=== PATIENT | female | born 1955 | race Caucasian/White ===

== ENCOUNTER → 2016-05-24 | Outpatient (CLI) | payer OTHER ==
[2016-05-24 08:04] LABS: ALT 24 U/L (9-52); AST 21 U/L (14-36); Cholesterol 195 mg/dL (<200); HDL Cholesterol 60 mg/dL (40-60); Triglycerides 209 mg/dL (<150)
== END ==
LOC: LABWHC1 07:03
PROVIDERS: ATTEND Internal Medicine Interventional Cardiology
DX: E78.2 Mixed hyperlipidemia (principal)
CPT/HCPCS: 36415; 80061; 84450; 84460

== ENCOUNTER → 2016-11-06 | Outpatient (CLI) | payer OTHER ==
[2016-11-06 08:58] LABS: ALT 26 U/L (9-52); AST 25 U/L (14-36); Alkaline Phosphatase 83 U/L (38-126); Anion Gap 9 mmol/L; Blood Urea Nitrogen 14 mg/dL (7-17); Calcium 9.3 mg/dL (8.4-10.2); Carbon Dioxide 29 mmol/L (22-30); Chloride 105 mmol/L (98-107); Cholesterol 181 mg/dL (<200); Glucose 83 mg/dL (74-99); HDL Cholesterol 54 mg/dL (40-60); Non-African American GFR(MDRD) >60 (>60 ml/min/1.73 sqM); Potassium 4.4 mmol/L (3.5-5.1); Sodium 143 mmol/L (137-145); Total Bilirubin 0.4 mg/dL (0.2-1.3); Total Protein 7.1 g/dL (6.3-8.2)
== END | disposition home or self-care (01) ==
LOC: LABWHC1 07:03
PROVIDERS: ATTEND Internal Medicine Interventional Cardiology
DX: E78.2 Mixed hyperlipidemia (principal)
CPT/HCPCS: 36415; 80053; 80061

== ENCOUNTER → 2016-12-15 | Outpatient (CLI) | payer OTHER ==
--- NOTE | 2016-12-17 06:58 | MM ---
Reason for exam: screening (asymptomatic). Last mammogram was performed 1 year ago. History: Patient is postmenopausal and is nulliparous. Took estrogen for 13 years beginning at age 29. Physical Findings: A clinical breast exam by your physician is recommended on an annual basis and results should be correlated with mammographic findings. MG Screening Mammo w CAD Bilateral CC and MLO view(s) were taken. Prior study comparison: December 15, 2015, bilateral MG screening mammo w CAD. December 12, 2014, right breast MG work up mamm w CAD RT. The breast tissue is heterogeneously dense. This may lower the sensitivity of mammography. No significant changes when compared with prior studies. ASSESSMENT: Negative, BI-RAD 1 RECOMMENDATION: Routine screening mammogram of both breasts in 1 year.
== END | disposition home or self-care (01) ==
LOC: RADMAMWWP 12:56
PROVIDERS: ATTEND Internal Medicine
DX: Z12.31 Encounter for screening mammogram for malignant neoplasm of breast (principal)

== ENCOUNTER → 2017-05-14 | Outpatient (CLI) | payer BC ==
[2017-05-14 07:46] LABS: HCT 40.7 % (34.0-46.0); HGB 12.9 gm/dL (11.4-16.0); Hypochromasia Slight; MCH 30.3 pg (25.0-35.0); MCHC 31.6 g/dL (31.0-37.0); MCV 95.9 fL (80.0-100.0); Mean Platelet Volume 6.7; Platelet Count 189 k/uL (150-450); RBC 4.25 m/uL (3.80-5.40); RDW 14.1 % (11.5-15.5); WBC 4.8 k/uL (3.8-10.6)
[2017-05-14 08:03] LABS: ALT 16 U/L (9-52); AST 18 U/L (14-36); Albumin 4.1 g/dL (3.5-5.0); Alkaline Phosphatase 86 U/L (38-126); Anion Gap 10 mmol/L; Blood Urea Nitrogen 18 mg/dL (7-17); Calcium 9.4 mg/dL (8.4-10.2); Carbon Dioxide 30 mmol/L (22-30); Chloride 103 mmol/L (98-107); Cholesterol 175 mg/dL (<200); Glucose 87 mg/dL (74-99); HDL Cholesterol 54 mg/dL (40-60); LDL Cholesterol,Calculated 89 mg/dL (0-99); Potassium 4.9 mmol/L (3.5-5.1); Sodium 143 mmol/L (137-145); Total Bilirubin 0.4 mg/dL (0.2-1.3); Total Protein 7.2 g/dL (6.3-8.2); Triglycerides 162 mg/dL (<150); Uric Acid 5.9 mg/dL (3.7-7.4)
== END | disposition home or self-care (01) ==
LOC: LABWHC1 07:10
PROVIDERS: ATTEND Internal Medicine Interventional Cardiology
DX: E78.2 Mixed hyperlipidemia (principal); I10 Essential (primary) hypertension; M10.9 Gout, unspecified
CPT/HCPCS: 36415; 80053; 80061; 84443; 84550; 85027

== ENCOUNTER → 2017-08-13 | Outpatient (CLI) | payer BC ==
[2017-08-13 10:10] LABS: HCT 39.3 % (34.0-46.0); HGB 12.8 gm/dL (11.4-16.0); MCH 30.2 pg (25.0-35.0); MCHC 32.7 g/dL (31.0-37.0); MCV 92.2 fL (80.0-100.0); Mean Platelet Volume 6.8; Platelet Count 172 k/uL (150-450); RBC 4.26 m/uL (3.80-5.40); RDW 15.1 % (11.5-15.5); WBC 4.1 k/uL (3.8-10.6)
[2017-08-13 10:27] LABS: ALT 24 U/L (9-52); AST 19 U/L (14-36); Albumin 4.2 g/dL (3.5-5.0); Alkaline Phosphatase 83 U/L (38-126); Anion Gap 13 mmol/L; Blood Urea Nitrogen 21 mg/dL (7-17); Calcium 9.3 mg/dL (8.4-10.2); Carbon Dioxide 27 mmol/L (22-30); Chloride 103 mmol/L (98-107); Cholesterol 172 mg/dL (<200); Glucose 86 mg/dL (74-99); HDL Cholesterol 51 mg/dL (40-60); LDL Cholesterol,Calculated 95 mg/dL (0-99); Potassium 4.4 mmol/L (3.5-5.1); Sodium 143 mmol/L (137-145); Total Bilirubin 0.5 mg/dL (0.2-1.3); Total Protein 7.1 g/dL (6.3-8.2); Triglycerides 132 mg/dL (<150); Uric Acid 6.6 mg/dL (3.7-7.4)
== END | disposition home or self-care (01) ==
LOC: LABWHC1 09:10
PROVIDERS: ATTEND Internal Medicine
DX: I10 Essential (primary) hypertension (principal); E78.5 Hyperlipidemia, unspecified; M10.9 Gout, unspecified
CPT/HCPCS: 36415; 80053; 80061; 84443; 84550; 85027

== ENCOUNTER → 2018-04-17 | Outpatient (CLI) | payer OTHER ==
--- NOTE | 2018-04-17 15:24 | BD ---
EXAMINATION TYPE: Axial Bone Density DATE OF EXAM: 04/17/2018 COMPARISON: NONE CLINICAL HISTORY: Height: 68 Weight: 194.8 FRAX RISK QUESTIONS: Alcohol (3 or more units per day): no Family History (Parent hip fracture): no Glucocorticoids (More than 3mos): no (Ex: prednisone, prednisolone, methylprednisolone, dexamethasone, and hydrocortisone). History of Fracture in Adulthood: no Secondary Osteoporosis: 1. Type 1 Diabetes: no 2. Hyperthyroidism: no 3. Menopause before 45: yes 4. Malnutrition: no 5. Chronic liver disease: no Rheumatoid Arthritis: no Current Tobacco Use: no RISK FACTORS HISTORY OF: Family History of Osteoporosis: no Active: yes Diet low in dairy products/other sources of calcium: no Postmenopausal woman: hysterectomy age 29 MEDICATIONS: heart meds, blood pressure meds Additional History: EXAM MEASUREMENTS: Bone mineral densitometry was performed using the [employer] System. Bone mineral density as measured about the Lumbar spine is: ----- L1-L4(G/cm2): 1.114 T Score Values are as follows: ----- L2: -1.1 ----- L3: -0.1 ----- L4: -0.4 ----- L1-L4: -0.5 Bone mineral density has: decreased -5.2 % since study of: 12.09.2014 Bone mineral density about the R hip (g/cm2): 0.868 Bone mineral density about the L hip (g/cm2): 0.837 T Score values are as follows: -----R Neck: -1.2 -----L Neck: -1.4 -----R Total: -0.9 -----L Total: -1.2 Bone mineral density has: decreased -5.1 % since study of: 12.09.2014 IMPRESSION: Osteopenia NOTE: T-SCORE=SD OF THE YOUNG ADULT MEAN.
--- NOTE | 2018-04-18 14:26 | MM ---
Reason for exam: screening (asymptomatic). Last mammogram was performed 1 year and 4 months ago. History: Patient is postmenopausal and is nulliparous. Took estrogen for 13 years beginning at age 29. Physical Findings: A clinical breast exam by your physician is recommended on an annual basis and results should be correlated with mammographic findings. MG Screening Mammo w CAD Bilateral CC and MLO view(s) were taken. Prior study comparison: December 15, 2016, bilateral MG screening mammo w CAD. December 15, 2015, bilateral MG screening mammo w CAD. The breast tissue is heterogeneously dense. This may lower the sensitivity of mammography. There are benign appearing round regional calcifications bilaterally. There is no discrete abnormality. ASSESSMENT: Benign, BI-RAD 2 RECOMMENDATION: Routine screening mammogram of both breasts in 1 year.
== END | disposition home or self-care (01) ==
LOC: RADMAMWWP 07:26
PROVIDERS: ATTEND Internal Medicine
DX: Z12.31 Encounter for screening mammogram for malignant neoplasm of breast (principal); M85.80 Other specified disorders of bone density and structure, unspecified site
CPT/HCPCS: 77067; 77080

== ENCOUNTER → 2018-06-14 | Outpatient (CLI) | payer SELFPAY | LOC: LABWHC1 07:10 | PROVIDERS: ATTEND Internal Medicine Interventional Cardiology | DX: E78.2 Mixed hyperlipidemia (principal) | CPT/HCPCS: 36415; 80061; 84450; 84460 ==

== ENCOUNTER → 2019-01-06 | Outpatient (CLI) | payer SELFPAY ==
[2019-01-06 15:57] LABS: African American GFR (CKD) 79.4 (60.0-200.0); Albumin 4.5 g/dL (3.80-4.90); Albumin/Globulin Ratio 2.14 (1.60-3.17); Anion Gap 9.3 mmol/L (4.00-12.00); Calcium 9.4 mg/dL (8.7-10.3); Carbon Dioxide 29.7 mmol/L (21.6-31.8); Chol/HDL Ratio 3.33; Globulin 2.1 g/dL (1.6-3.3); LDL Cholesterol,Calculated 95.4 mg/dL (0.0-131.0); Potassium 4.5 mmol/L (3.5-5.5); Total Bilirubin 0.4 mg/dL (0.2-1.2); Total Protein 6.6 g/dL (6.2-8.2); VLDL Calculation 32.6 mg/dL (5.00-40.00)
== END | disposition home or self-care (01) ==
LOC: LABWHC1 08:51
PROVIDERS: ATTEND Nurse Practitioner Adult Health
DX: E78.2 Mixed hyperlipidemia (principal); I42.8 Other cardiomyopathies
CPT/HCPCS: 36415; 80053; 80061

== ENCOUNTER → 2020-01-28 | Outpatient (CLI) | payer BC ==
[2020-01-28 10:38] LABS: LDL Cholesterol,Calculated 79.2 mg/dL (0.0-131.0); VLDL Calculation 32.8 mg/dL (5.00-40.00)
== END | disposition home or self-care (01) ==
LOC: LABWHC1 07:25
PROVIDERS: ATTEND Internal Medicine Interventional Cardiology
DX: E78.2 Mixed hyperlipidemia (principal)
CPT/HCPCS: 36415; 80061; 84450; 84460

== ENCOUNTER → 2020-06-23 | Outpatient (CLI) | payer BC ==
--- NOTE | 2020-06-24 10:52 | MM ---
Reason for exam: screening (asymptomatic). Last mammogram was performed 1 year and 2 months ago. History: Patient is postmenopausal and is nulliparous. Took estrogen for 13 years beginning at age 29. Physical Findings: A clinical breast exam by your physician is recommended on an annual basis and results should be correlated with mammographic findings. MG Screening Mammo w CAD Bilateral CC and MLO view(s) were taken. Prior study comparison: April 26, 2019, bilateral MG screening mammo w CAD. April 17, 2018, bilateral MG screening mammo w CAD. The breast tissue is heterogeneously dense. This may lower the sensitivity of mammography. Focal asymmetry central upper right breast, stable. ASSESSMENT: Benign, BI-RAD 2 RECOMMENDATION: Routine screening mammogram of both breasts in 1 year.
== END | disposition home or self-care (01) ==
LOC: RADMAMWWP 09:09
PROVIDERS: ATTEND Internal Medicine
DX: Z12.31 Encounter for screening mammogram for malignant neoplasm of breast (principal); Z78.0 Asymptomatic menopausal state
CPT/HCPCS: 77067

== ENCOUNTER → 2020-07-24 | Outpatient (CLI) | payer BC ==
[2020-07-24 15:08] LABS: African American GFR (CKD) 69.4 (60.0-200.0); Albumin 4.4 g/dL (3.80-4.90); Albumin/Globulin Ratio 1.83 (1.60-3.17); Anion Gap 9.9 mmol/L (4.00-12.00); Calcium 9.2 mg/dL (8.7-10.3); Carbon Dioxide 25.1 mmol/L (21.6-31.8); Chol/HDL Ratio 3.31; Globulin 2.4 g/dL (1.6-3.3); LDL Cholesterol,Calculated 79.4 mg/dL (0.0-131.0); Non-African American GFR(CKD) 59.9 (60.0-200.0); Potassium 4.4 mmol/L (3.5-5.5); Total Bilirubin 0.7 mg/dL (0.2-1.2); Total Protein 6.8 g/dL (6.2-8.2); VLDL Calculation 31.6 mg/dL (5.00-40.00)
== END | disposition home or self-care (01) ==
LOC: LABWHC1 07:18
PROVIDERS: ATTEND Internal Medicine Interventional Cardiology
DX: E78.2 Mixed hyperlipidemia (principal)
CPT/HCPCS: 36415; 80053; 80061

== ENCOUNTER 2021-01-30 11:27 | Inpatient (IN) | payer BC ==
[2021-01-30 12:23] LABS: Anisocytosis Slight; Basophils % (A) 1 %; Eosinophils # (A) 0.1 k/uL (0-0.7); Eosinophils % (A) 2 %; HCT 26.3 % (34.0-46.0); HGB 7.6 gm/dL (11.4-16.0); Hypochromasia Marked; Lymphocytes # (A) 1.7 k/uL (1.0-4.8); Lymphocytes % (A) 30 %; MCH 22.8 pg (25.0-35.0); MCHC 29.1 g/dL (31.0-37.0); MCV 78.2 fL (80.0-100.0); Mean Platelet Volume 8.3; Microcytosis Slight; Monocytes # (A) 0.4 k/uL (0-1.0); Monocytes % (A) 7 %; Neutrophils # (A) 3.2 k/uL (1.3-7.7); Neutrophils % (A) 57 %; Platelet Count 260 k/uL (150-450); Poikilocytosis Slight; RBC 3.36 m/uL (3.80-5.40); RDW 16.9 % (11.5-15.5); WBC 5.6 k/uL (3.8-10.6)
[2021-01-30 12:31] LABS: Albumin 4.2 g/dL (3.5-5.0); Calcium 9.6 mg/dL (8.4-10.2); Potassium 4.4 mmol/L (3.5-5.1); Total Bilirubin 0.4 mg/dL (0.2-1.3); Total Protein 7.4 g/dL (6.3-8.2)
--- NOTE | 2021-01-30 13:43 | ED ---
General Adult HPI - General Chief complaint: Dizziness Stated complaint: sent by pcp Time Seen by Provider: 01/30/21 11:55 Source: patient, RN notes reviewed, old records reviewed Mode of arrival: ambulatory Limitations: no limitations - History of Present Illness Initial comments: This is a 65-year-old female presents emergency Department who presents emergency Department states she's had a two-week episode of shortness of breath fatigue and black stools. Patient states she went to her primary medical care doctor's office they were called and stated that there hemoglobin was low. Patient has no history of similar. Patient denies any chest pain or palpitations. Patient states she's never had a colonoscopy. Patient denies any vomiting or diarrhea. Abdominal pain. - Related Data Allergies Allergy/AdvReac Type Severity Reaction Status Date / Time penicillin G AdvReac Unknown Unknown Verified 01/30/21 11:55 Review of Systems ROS Statement: Those systems with pertinent positive or pertinent negative responses have been documented in the HPI. ROS Other: All systems not noted in ROS Statement are negative. Past Medical History Past Medical History: No Reported History History of Any Multi-Drug Resistant Organisms: None Reported Past Surgical History: No Surgical Hx Reported Past Psychological History: No Psychological Hx Reported Smoking Status: Never smoker Past Alcohol Use History: None Reported Past Drug Use History: None Reported General Exam - General Exam Comments Initial Comments: GENERAL: Patient is well-developed and well-nourished. Patient is nontoxic and well- hydrated and is in no acute distress EYES: The sclera were anicteric and conjunctiva is pale. Extraocular movements were intact and pupils were equal round and reactive to light. Eyelids were unremarkable. PULMONARY: Unlabored respirations. Good breath sounds bilaterally. No audible rales rhonchi or wheezing was noted. CARDIOVASCULAR: There is a regular rate and rhythm without any murmurs gallops or rubs. ABDOMEN: Soft and nontender with normal bowel sounds. No palpable organomegaly was noted. There is no palpable pulsatile mass. SKIN: Skin is pale NEUROLOGIC: Patient is alert and oriented x3. Cranial nerves II through XII are grossly intact. Motor and sensory are also intact. Normal speech, volume and content. Symmetrical smile. MUSCULOSKELETAL: Normal extremities with adequate strength and full range of motion. No lower extremity swelling or edema. No calf tenderness. LYMPHATICS: No significant lymphadenopathy is noted PSYCHIATRIC: Normal psychiatric evaluation. Limitations: no limitations Course Vital Signs 11/12/21 11:51 Temperature 98.3 F Pulse Rate 63 Respiratory 18 Rate Blood Pressure 122/54 O2 Sat by Pulse 100 Oximetry Medical Decision Making - Medical Decision Making EKG is normal sinus rhythm at 61 bpm OR interval is on a 44 QRS is 92 QT interval is 426 QTC is 428 per patient's EKG shows no ST segment elevation or depression. I spoke with Dr. Dasilva he agreed with the patient admitted the patient wrote admitting orders - Lab Data Result diagrams: 01/30/21 12:00 01/30/21 12:00 Lab Results 01/30/21 01/30/21 Range/Units 12:00 12:00 WBC 5.6 (3.8-10.6) k/uL RBC 3.36 L (3.80-5.40) m/uL Hgb 7.6 L (11.4-16.0) gm/dL Hct 26.3 L (34.0-46.0) % MCV 78.2 L (80.0-100.0) fL MCH 22.8 L (25.0-35.0) pg MCHC 29.1 L (31.0-37.0) g/dL RDW 16.9 H (11.5-15.5) % Plt Count 260 (150-450) k/uL MPV 8.3 Neutrophils % 57 % Lymphocytes % 30 % Monocytes % 7 % Eosinophils % 2 % Basophils % 1 % Neutrophils # 3.2 (1.3-7.7) k/uL Lymphocytes # 1.7 (1.0-4.8) k/uL Monocytes # 0.4 (0-1.0) k/uL Eosinophils # 0.1 (0-0.7) k/uL Basophils # 0.0 (0-0.2) k/uL Hypochromasia Marked Poikilocytosis Slight Anisocytosis Slight Microcytosis Slight Sodium 137 (137-145) mmol/L Potassium 4.4 (3.5-5.1) mmol/L Chloride 103 (98-107) mmol/L Carbon Dioxide 26 (22-30) mmol/L Anion Gap 8 mmol/L BUN 24 H (7-17) mg/dL Creatinine 0.85 (0.52-1.04) mg/dL Est GFR (CKD-EPI)AfAm 84 (>60 ml/min/1.73 sqM) Est GFR (CKD-EPI)NonAf 73 (>60 ml/min/1.73 sqM) Glucose 100 H (74-99) mg/dL Calcium 9.6 (8.4-10.2) mg/dL Total Bilirubin 0.4 (0.2-1.3) mg/dL AST 19 (14-36) U/L ALT 10 (4-34) U/L Alkaline Phosphatase 82 (38-126) U/L Total Protein 7.4 (6.3-8.2) g/dL Albumin 4.2 (3.5-5.0) g/dL Disposition Clinical Impression: GI bleed, Anemia Disposition: ADMITTED IP TO THIS HOSP Referrals: Anahy Dasilva MD [Primary Care Provider] - 1-2 days Time of Disposition: 13:44
[2021-01-30 14:52] LABS: Partial Thromboplastin Time 22.7 sec (22.0-30.0); Prothrombin Time 10.4 sec (9.0-12.0)
[2021-01-30] MEDS: SODIUM CHLORIDE 0.9% 1,000 ML IV ONE ×2 (15:08→22:20)
[2021-01-30 20:34] LABS: Anisocytosis Slight; Basophils % (A) 1 %; Eosinophils # (A) 0.1 k/uL (0-0.7); Eosinophils % (A) 2 %; Hypochromasia Marked; Lymphocytes # (A) 1.8 k/uL (1.0-4.8); Lymphocytes % (A) 40 %; MCH 23.4 pg (25.0-35.0); MCHC 30.3 g/dL (31.0-37.0); MCV 77.1 fL (80.0-100.0); Mean Platelet Volume 7.3; Microcytosis Slight; Monocytes # (A) 0.3 k/uL (0-1.0); Monocytes % (A) 7 %; Neutrophils # (A) 2.1 k/uL (1.3-7.7); Neutrophils % (A) 47 %; Platelet Count 230 k/uL (150-450); Poikilocytosis Slight; RBC 2.85 m/uL (3.80-5.40); RDW 16.9 % (11.5-15.5); WBC 4.5 k/uL (3.8-10.6)
[2021-01-30 20:51] LABS: HGB 6.7 gm/dL (11.4-16.0)
[2021-01-30] MEDS: PANTOPRAZOLE 40 MG/10 ML VIAL IVP SCH (22:20)
[2021-01-30 23:46] LABS: Anisocytosis Slight; Basophils % (A) 0 %; Eosinophils # (A) 0.1 k/uL (0-0.7); Eosinophils % (A) 2 %; HCT 21.6 % (34.0-46.0); Hypochromasia Marked; Lymphocytes # (A) 1.7 k/uL (1.0-4.8); Lymphocytes % (A) 33 %; MCH 23.3 pg (25.0-35.0); MCHC 29.6 g/dL (31.0-37.0); MCV 78.6 fL (80.0-100.0); Mean Platelet Volume 7.7; Microcytosis Slight; Monocytes # (A) 0.3 k/uL (0-1.0); Monocytes % (A) 7 %; Neutrophils # (A) 2.7 k/uL (1.3-7.7); Neutrophils % (A) 54 %; Platelet Count 228 k/uL (150-450); Poikilocytosis Slight; RBC 2.75 m/uL (3.80-5.40); RDW 16.8 % (11.5-15.5)
[2021-01-31 00:06] LABS: HGB 6.4 gm/dL (11.4-16.0)
[2021-01-31] MEDS: PANTOPRAZOLE 40 MG/10 ML VIAL IVP SCH ×2 (09:46→20:57)
--- NOTE | 2021-01-31 10:36 | P.GSCN ---
History of Present Illness Consult date: 01/31/21 Reason for Consult: Anemia, GI bleeding History of present illness: Patient presented to the ER with anemia and GI bleeding. She's noticed some black stools 2 weeks. Denies any actual blood in the stool that she seen or change in bowel habits other than the color. No heartburn or indigestion. No abdominal pain. No history of ulcer disease. No family history of GI malignancy or inflammatory bowel disease. The patient has never had an EGD or colonoscopy. She did have 1 episode of vomiting when she was at the grocery store. She was walking around and got very lightheaded and went in and threw up some clear fluid Review of Systems All systems: negative Past Medical History Past Medical History: No Reported History, Hyperlipidemia, Hypertension History of Any Multi-Drug Resistant Organisms: None Reported Past Surgical History: Hysterectomy Past Psychological History: No Psychological Hx Reported Smoking Status: Former smoker Past Alcohol Use History: None Reported Past Drug Use History: None Reported Medications and Allergies Home Medications Medication Instructions Recorded Confirmed Type Aspirin EC [Ecotrin Low Dose] 81 mg PO DAILY 01/30/21 01/30/21 History Ergocalciferol [Vitamin D2 (1250 1,250 mcg PO MO 01/30/21 01/30/21 History Mcg = 85716 Iu)] Losartan Potassium 50 mg PO DAILY 01/30/21 01/30/21 History Simvastatin [Zocor] 40 mg PO HS 01/30/21 01/30/21 History Venlafaxine HCl ER [Effexor Xr] 37.5 mg PO Q48H 01/30/21 01/30/21 History Vits A,C,E/Lutein/Minerals 1 tab PO DAILY 01/30/21 01/30/21 History [Ocuvite with Lutein Tablet] carvediloL [Coreg] 3.125 mg PO BID 01/30/21 01/30/21 History Allergies Allergy/AdvReac Type Severity Reaction Status Date / Time penicillin G AdvReac Unknown Unknown Verified 01/30/21 14:41 Surgical - Exam Osteopathic Statement: *. No significant issues noted on an osteopathic structural exam other than those noted in the History and Physical/Consult. Vital Signs Temp Pulse Resp BP Pulse Ox 98.3 F 63 18 122/54 100 01/30/21 11:51 01/30/21 11:51 01/30/21 11:51 01/30/21 11:51 01/30/21 11:51 - General well developed, well nourished, no distress - Eyes normal ocular movement - Neck trachea midline - Respiratory normal respiratory effort, clear to auscultation - Cardiovascular Rhythm: regular - Abdomen Abdomen: soft, non tender, bowel sounds Results - Labs 01/30/21 23:22 01/30/21 12:00 Abnormal Lab Results - Last 24 Hours (Table) 01/30/21 01/30/21 01/30/21 Range/Units 12:00 12:00 14:05 RBC 3.36 L (3.80-5.40) m/uL Hgb 7.6 L (11.4-16.0) gm/dL Hct 26.3 L (34.0-46.0) % MCV 78.2 L (80.0-100.0) fL MCH 22.8 L (25.0-35.0) pg MCHC 29.1 L (31.0-37.0) g/dL RDW 16.9 H (11.5-15.5) % BUN 24 H (7-17) mg/dL Glucose 100 H (74-99) mg/dL Crossmatch See Detail 01/30/21 01/30/21 Range/Units 20:10 23:22 RBC 2.85 L 2.75 L (3.80-5.40) m/uL Hgb 6.7 L* 6.4 L* (11.4-16.0) gm/dL Hct 22.0 L 21.6 L (34.0-46.0) % MCV 77.1 L 78.6 L (80.0-100.0) fL MCH 23.4 L 23.3 L (25.0-35.0) pg MCHC 30.3 L 29.6 L (31.0-37.0) g/dL RDW 16.9 H 16.8 H (11.5-15.5) % BUN (7-17) mg/dL Glucose (74-99) mg/dL Crossmatch Diabetes panel 01/30/21 Range/Units 12:00 Sodium 137 (137-145) mmol/L Potassium 4.4 (3.5-5.1) mmol/L Chloride 103 (98-107) mmol/L Carbon Dioxide 26 (22-30) mmol/L BUN 24 H (7-17) mg/dL Creatinine 0.85 (0.52-1.04) mg/dL Glucose 100 H (74-99) mg/dL Calcium 9.6 (8.4-10.2) mg/dL AST 19 (14-36) U/L ALT 10 (4-34) U/L Alkaline Phosphatase 82 (38-126) U/L Total Protein 7.4 (6.3-8.2) g/dL Albumin 4.2 (3.5-5.0) g/dL Calcium panel 01/30/21 Range/Units 12:00 Calcium 9.6 (8.4-10.2) mg/dL Albumin 4.2 (3.5-5.0) g/dL Pituitary panel 01/30/21 Range/Units 12:00 Sodium 137 (137-145) mmol/L Potassium 4.4 (3.5-5.1) mmol/L Chloride 103 (98-107) mmol/L Carbon Dioxide 26 (22-30) mmol/L BUN 24 H (7-17) mg/dL Creatinine 0.85 (0.52-1.04) mg/dL Glucose 100 H (74-99) mg/dL Calcium 9.6 (8.4-10.2) mg/dL Adrenal panel 01/30/21 Range/Units 12:00 Sodium 137 (137-145) mmol/L Potassium 4.4 (3.5-5.1) mmol/L Chloride 103 (98-107) mmol/L Carbon Dioxide 26 (22-30) mmol/L BUN 24 H (7-17) mg/dL Creatinine 0.85 (0.52-1.04) mg/dL Glucose 100 H (74-99) mg/dL Calcium 9.6 (8.4-10.2) mg/dL Total Bilirubin 0.4 (0.2-1.3) mg/dL AST 19 (14-36) U/L ALT 10 (4-34) U/L Alkaline Phosphatase 82 (38-126) U/L Total Protein 7.4 (6.3-8.2) g/dL Albumin 4.2 (3.5-5.0) g/dL Assessment and Plan (1) Anemia Current Visit: Yes Status: Acute Code(s): D64.9 - ANEMIA, UNSPECIFIED SNOMED Code(s): 907571820 (2) GI bleed Current Visit: Yes Status: Acute Code(s): K92.2 - GASTROINTESTINAL HEMORRHAGE, UNSPECIFIED SNOMED Code(s): 21833642 Plan: I recommend the patient have an EGD and colonoscopy. The procedure, risks and complications were discussed. We'll prep her for this tomorrow implanted on Tuesday. Questions were encouraged and answered. Monitor CBC.
[2021-01-31 12:16] LABS: Anisocytosis Slight; Basophils % (A) 0 %; Eosinophils # (A) 0.1 k/uL (0-0.7); Eosinophils % (A) 2 %; HCT 26.7 % (34.0-46.0); Hypochromasia Marked; Lymphocytes # (A) 1.3 k/uL (1.0-4.8); Lymphocytes % (A) 32 %; MCH 24.3 pg (25.0-35.0); MCHC 30.8 g/dL (31.0-37.0); Mean Platelet Volume 7.3; Microcytosis Slight; Monocytes # (A) 0.3 k/uL (0-1.0); Monocytes % (A) 7 %; Neutrophils # (A) 2.2 k/uL (1.3-7.7); Neutrophils % (A) 55 %; Platelet Count 247 k/uL (150-450); Poikilocytosis Moderate; RBC 3.37 m/uL (3.80-5.40); RDW 16.7 % (11.5-15.5); WBC 3.9 k/uL (3.8-10.6)
[2021-01-31 12:27] LABS: HGB 8.2 gm/dL (11.4-16.0)
--- NOTE | 2021-01-31 14:11 | P.HPIM ---
History of Present Illness H&P Date: 01/31/21 Africa Martinez, his 65-year-old female who presented to [facility] with a chief complaint of fatigue and generalized weakness she had evidence of anemia with hemoglobin down to 7.0 she stated that she was having black stool for the last 2 weeks she was admitted to medical floor serial CBCs were ordered her subsequence CBC revealed a hemoglobin of 6.2 , 1 unit of red blood cell transfusion was ordered surgical consultation was requested for EGD and colonoscopy. She was evaluated in the emergency room her vital exam on presentation revealed a temperature of 98.3 heart rate 63 respiration 18 and blood pressure 122/54 pulse ox 100% on room air Laboratory data revealed a white blood count of 5.6 hemoglobin 7.6 platelet count 260 BUN 24 creatinine 0.85 coronavirus PCR was negative Past Medical History Past Medical History: No Reported History, Hyperlipidemia, Hypertension History of Any Multi-Drug Resistant Organisms: None Reported Past Surgical History: Hysterectomy Past Psychological History: No Psychological Hx Reported Smoking Status: Former smoker Past Alcohol Use History: None Reported Past Drug Use History: None Reported Medications and Allergies Home Medications Medication Instructions Recorded Confirmed Type Aspirin EC [Ecotrin Low Dose] 81 mg PO DAILY 01/30/21 01/30/21 History Ergocalciferol [Vitamin D2 (1250 1,250 mcg PO MO 01/30/21 01/30/21 History Mcg = 76685 Iu)] Losartan Potassium 50 mg PO DAILY 01/30/21 01/30/21 History Simvastatin [Zocor] 40 mg PO HS 01/30/21 01/30/21 History Venlafaxine HCl ER [Effexor Xr] 37.5 mg PO Q48H 01/30/21 01/30/21 History Vits A,C,E/Lutein/Minerals 1 tab PO DAILY 01/30/21 01/30/21 History [Ocuvite with Lutein Tablet] carvediloL [Coreg] 3.125 mg PO BID 01/30/21 01/30/21 History Allergies Allergy/AdvReac Type Severity Reaction Status Date / Time penicillin G AdvReac Unknown Unknown Verified 01/30/21 14:41 Physical Exam Vitals: Vital Signs Temp Pulse Pulse Resp BP BP Pulse Ox 01/31/21 12:50 78 15 122/58 99 01/31/21 09:43 97.8 F 72 16 139/61 97 01/31/21 04:00 98.2 F 64 16 108/69 96 01/31/21 02:52 98.2 F 68 18 110/72 01/31/21 02:00 98.2 F 68 18 110/72 98 01/31/21 00:14 98.2 F 76 16 116/71 01/30/21 23:44 97.7 F 71 18 125/80 98 01/30/21 23:34 98.1 F 72 18 124/62 01/30/21 22:30 98.2 F 70 16 146/86 97 01/30/21 20:17 81 18 141/85 98 01/30/21 15:20 63 18 134/84 100 Intake and Output 01/30/21 01/31/21 01/31/21 22:59 06:59 14:59 Intake Total 310 Balance 310 Intake: Blood Product 310 Rc As-1 Unit 310 [id number] Other: # Voids 1 In general patient is alert and oriented x 3 in no distress HEENT head normocephalic and atraumatic Neck is supple no JVD no goiter no lymphadenopathy no carotid bruit Chest examination is clear to auscultation no crackles no wheezing Cardiac exam reveals regular heart sounds S1 and S2 no gallops no murmurs Abdomen is soft nontender no organomegaly with normal bowel sounds Extremity exam reveals no edema no cyanosis or clubbing Neurological examination reveals no gross focal deficits Results CBC & Chem 7: 01/31/21 11:03 01/30/21 12:00 Labs: Abnormal Lab Results - Last 24 Hours (Table) 01/30/21 01/30/21 01/30/21 Range/Units 14:05 20:10 23:22 RBC 2.85 L 2.75 L (3.80-5.40) m/uL Hgb 6.7 L* 6.4 L* (11.4-16.0) gm/dL Hct 22.0 L 21.6 L (34.0-46.0) % MCV 77.1 L 78.6 L (80.0-100.0) fL MCH 23.4 L 23.3 L (25.0-35.0) pg MCHC 30.3 L 29.6 L (31.0-37.0) g/dL RDW 16.9 H 16.8 H (11.5-15.5) % Crossmatch See Detail 01/31/21 Range/Units 11:03 RBC 3.37 L (3.80-5.40) m/uL Hgb 8.2 L D (11.4-16.0) gm/dL Hct 26.7 L (34.0-46.0) % MCV 79.0 L (80.0-100.0) fL MCH 24.3 L (25.0-35.0) pg MCHC 30.8 L (31.0-37.0) g/dL RDW 16.7 H (11.5-15.5) % Crossmatch Thrombosis Risk Factor Assmnt - Choose All That Apply Any of the Below Risk Factors Present?: No Other Risk Factors: Yes Each Risk Factor Represents 2 Points: Age 61-74 years Thrombosis Risk Factor Assessment Total Risk Factor Score: 2 Thrombosis Risk Factor Assessment Level: Low Risk Assessment and Plan Plan: Anemia with black tarry stools for 2 weeks Underlying history of hypertension maintained on losartan Underlying history of hyperlipidemia Underlying history of depression Underlying history of vitamin D deficiency Home medications reviewed and reordered Patient started on IV Protonix 40 mg twice daily 1 unit of red blood cell transfusion was ordered Surgical consultation was requested for EGD and colonoscopy
[2021-01-31] MEDS: VIT A,C & E-LUTEIN-MINERALS 1 EACH TAB PO SCH (15:32)
[2021-01-31] MEDS: carvediloL 3.125 MG TAB PO SCH ×2 (15:32→18:41)
[2021-01-31] MEDS: ATORVASTATIN 20 MG TAB PO SCH (20:56)
[2021-01-31] MEDS: VENLAFAXINE HCL ER 37.5 MG CAP PO SCH (20:57)
[2021-02-01] MEDS: carvediloL 3.125 MG TAB PO SCH ×2 (06:51→16:48)
[2021-02-01] MEDS: VIT A,C & E-LUTEIN-MINERALS 1 EACH TAB PO SCH (09:02)
[2021-02-01] MEDS: LOSARTAN 50 MG TAB PO SCH (09:02)
[2021-02-01] MEDS: PANTOPRAZOLE 40 MG/10 ML VIAL IVP SCH ×2 (09:02→21:00)
--- NOTE | 2021-02-01 09:52 | P.PN ---
Subjective Progress Note Date: 02/01/21 Africa Martinez, his 65-year-old female who presented to [facility] with a chief complaint of fatigue and generalized weakness she had evidence of anemia with hemoglobin down to 7.0 she stated that she was having black stool for the last 2 weeks she was admitted to medical floor serial CBCs were ordered her subsequence CBC revealed a hemoglobin of 6.2 , 1 unit of red blood cell transfusion was ordered surgical consultation was requested for EGD and colonoscopy. She was evaluated in the emergency room her vital exam on presentation revealed a temperature of 98.3 heart rate 63 respiration 18 and blood pressure 122/54 pulse ox 100% on room air Laboratory data revealed a white blood count of 5.6 hemoglobin 7.6 platelet count 260 BUN 24 creatinine 0.85 coronavirus PCR was negative On 02/01/2021 patient alert and oriented 3. Patient received 1 unit PRBCs and hemoglobin improving to 8.2. Patient reports no further episodes of dark stools reports she had soft normal colored bowel movement yesterday. Denies any further episodes of nausea or vomiting has been tolerating a clear liquid diet. Patient was evaluated by surgical services and plans for colonoscopy and EGD tomorrow 02/02/2021. Labs currently pending for today. At this time patient denies chest pain or shortness breath. Patient denies nausea vomiting or diarrhea. Patient denies any urinary burning or frequency Objective - Vital Signs Vital signs: Vital Signs Temp 98.3 F 02/01/21 08:00 Pulse 63 02/01/21 08:00 Resp 17 02/01/21 08:00 BP 122/67 02/01/21 08:00 Pulse Ox 98 02/01/21 08:00 Intake & Output 01/31/21 02/01/21 02/01/21 18:59 06:59 18:59 Intake Total 250 Balance 250 Intake: Oral 250 Other: # Voids 2 1 # Bowel Movements 1 - Exam In general patient is alert and oriented x 3 in no distress HEENT head normocephalic and atraumatic Neck is supple no JVD no goiter no lymphadenopathy no carotid bruit Chest examination is clear to auscultation no crackles no wheezing Cardiac exam reveals regular heart sounds S1 and S2 no gallops no murmurs Abdomen is soft nontender no organomegaly with normal bowel sounds Extremity exam reveals no edema no cyanosis or clubbing Neurological examination reveals no gross focal deficits - Labs CBC & Chem 7: 01/31/21 11:03 01/30/21 12:00 Labs: Abnormal Lab Results - Last 24 Hours (Table) 01/31/21 Range/Units 11:03 RBC 3.37 L (3.80-5.40) m/uL Hgb 8.2 L D (11.4-16.0) gm/dL Hct 26.7 L (34.0-46.0) % MCV 79.0 L (80.0-100.0) fL MCH 24.3 L (25.0-35.0) pg MCHC 30.8 L (31.0-37.0) g/dL RDW 16.7 H (11.5-15.5) % Assessment and Plan Plan: Anemia with black tarry stools for 2 weeks Underlying history of hypertension maintained on losartan Underlying history of hyperlipidemia Underlying history of depression Underlying history of vitamin D deficiency Home medications reviewed and reordered Patient started on IV Protonix 40 mg twice daily 1 unit of red blood cell transfusion was ordered Tentative plans for EGD and colonoscopy 02/02/2021
--- NOTE | 2021-02-01 11:08 | P.PN ---
Subjective Principal diagnosis: anemia, gi bleeding Hemoglobing stable after transfusion Objective - Vital Signs Vital signs: Vital Signs Temp 98.3 F 02/01/21 08:00 Pulse 63 02/01/21 08:00 Resp 17 02/01/21 08:00 BP 122/67 02/01/21 08:00 Pulse Ox 98 02/01/21 08:00 Intake & Output 01/31/21 02/01/21 02/01/21 18:59 06:59 18:59 Intake Total 250 Balance 250 Intake: Oral 250 Other: # Voids 2 1 # Bowel Movements 1 - Labs CBC & Chem 7: 01/31/21 11:03 01/30/21 12:00 Labs: Abnormal Lab Results - Last 24 Hours (Table) 01/31/21 Range/Units 11:03 RBC 3.37 L (3.80-5.40) m/uL Hgb 8.2 L D (11.4-16.0) gm/dL Hct 26.7 L (34.0-46.0) % MCV 79.0 L (80.0-100.0) fL MCH 24.3 L (25.0-35.0) pg MCHC 30.8 L (31.0-37.0) g/dL RDW 16.7 H (11.5-15.5) % Assessment and Plan (1) Anemia Current Visit: Yes Status: Acute Code(s): D64.9 - ANEMIA, UNSPECIFIED SNOMED Code(s): 547778456 (2) GI bleed Current Visit: Yes Status: Acute Code(s): K92.2 - GASTROINTESTINAL HEMORRHAGE, UNSPECIFIED SNOMED Code(s): 74679237 Plan: Will go tomorrow for EGD and colonoscopy
[2021-02-01 12:00] LABS: Anisocytosis Slight; Basophils # (A) 0.1 k/uL (0-0.2); Basophils % (A) 1 %; Eosinophils # (A) 0.1 k/uL (0-0.7); Eosinophils % (A) 2 %; HCT 27.9 % (34.0-46.0); HGB 8.5 gm/dL (11.4-16.0); Hypochromasia Marked; Lymphocytes # (A) 1.3 k/uL (1.0-4.8); Lymphocytes % (A) 32 %; MCH 24.1 pg (25.0-35.0); MCHC 30.6 g/dL (31.0-37.0); MCV 78.8 fL (80.0-100.0); Mean Platelet Volume 7.7; Microcytosis Slight; Monocytes # (A) 0.3 k/uL (0-1.0); Monocytes % (A) 7 %; Neutrophils # (A) 2.2 k/uL (1.3-7.7); Neutrophils % (A) 54 %; Platelet Count 250 k/uL (150-450); Poikilocytosis Moderate; RBC 3.55 m/uL (3.80-5.40); RDW 16.6 % (11.5-15.5)
[2021-02-01 12:33] LABS: Albumin 3.9 g/dL (3.5-5.0); Calcium 9.1 mg/dL (8.4-10.2); Potassium 4.5 mmol/L (3.5-5.1); Total Bilirubin 0.6 mg/dL (0.2-1.3); Total Protein 6.9 g/dL (6.3-8.2)
[2021-02-01] MEDS: METOCLOPRAMIDE 10 MG TAB PO SCH ×2 (13:52→16:53)
[2021-02-01] MEDS ORDERED: PEG 3350-NA SULF,BICARB,CL/KCL 4,000 ML BOTTLE PO ONE (14:00)
[2021-02-01] MEDS: ATORVASTATIN 20 MG TAB PO SCH (21:00)
[2021-02-02] MEDS: carvediloL 3.125 MG TAB PO SCH ×2 (07:14→17:03)
[2021-02-02 08:15] LABS: Anisocytosis Slight; Basophils % (A) 1 %; Eosinophils # (A) 0.1 k/uL (0-0.7); Eosinophils % (A) 2 %; HCT 28.5 % (34.0-46.0); HGB 8.5 gm/dL (11.4-16.0); Hypochromasia Marked; Lymphocytes # (A) 1.4 k/uL (1.0-4.8); Lymphocytes % (A) 32 %; MCH 23.9 pg (25.0-35.0); MCHC 29.9 g/dL (31.0-37.0); Mean Platelet Volume 7.9; Microcytosis Slight; Monocytes # (A) 0.3 k/uL (0-1.0); Monocytes % (A) 6 %; Neutrophils # (A) 2.5 k/uL (1.3-7.7); Neutrophils % (A) 57 %; Platelet Count 222 k/uL (150-450); Poikilocytosis Slight; RBC 3.57 m/uL (3.80-5.40); RDW 16.6 % (11.5-15.5); WBC 4.4 k/uL (3.8-10.6)
[2021-02-02 08:35] LABS: Albumin 3.8 g/dL (3.5-5.0); Calcium 9.2 mg/dL (8.4-10.2); Total Bilirubin 0.6 mg/dL (0.2-1.3); Total Protein 6.8 g/dL (6.3-8.2)
[2021-02-02] MEDS ORDERED: ERGOCALCIFEROL 1,250 MCG (50,000 IU) CAPSULE PO SCH (09:00)
[2021-02-02] MEDS: PANTOPRAZOLE 40 MG/10 ML VIAL IVP SCH (09:50)
[2021-02-02] MEDS ORDERED: PROPOFOL 10 MG/ML 20 ML VIAL IV ONE (11:30)
[2021-02-02] MEDS ORDERED: LIDOCAINE 1% INJ 10MG/ML (20 ML MDV) ONE (11:30)
[2021-02-02] MEDS ORDERED: SODIUM CHLORIDE 0.9% 500 ML 500 ML IV ONE (11:34)
--- NOTE | 2021-02-02 12:16 | P.PCN ---
Date of Procedure: 02/02/21 Preoperative Diagnosis: Anemia, GI bleeding Postoperative Diagnosis: Anemia, GI bleeding, hiatal hernia, diverticulosis Procedure(s) Performed: EGD and colonoscopy Anesthesia: MAC Surgeon: Liliam Pacheco Pathology: none sent Condition: stable Disposition: floor Indications for Procedure: Patient presented with significant anemia and GI bleeding Description of Procedure: The patient is a 65-year-old female presented with significant anemia, were not externals. She's taken to the endoscopy suite were gastroscope is passed per mouth to the third and fourth portions of the duodenum. Pharynx is unremarkable. The esophagus is without evidence of esophagitis or mass lesion. Options without inflammatory change. She is a fixed hiatal hernia. The stomach, pylorus and duodenum are without evidence of polyp, mass lesion, ulcer, other mucosal abnormality. No evidence of new or old blood in the upper digestive tract. She is then repositioned and a colonoscope is passed per rectum to the cecum she had a good prep. There is some diverticulosis within the sigmoid colon. Otherwise the colon was without evidence of polyp, mass lesion, ulcer, stricture or other mucosal abnormality. No significant hemorrhoidal disease on retroflexion of the scope. No evidence of new or old blood in the lower digestive tract. Bleeding is likely diverticular. She tolerated the procedure and taken to recovery room in satisfactory condition. If she has recurrent bleeding, capsule endoscopy. Surgically stable for discharge
[2021-02-02] MEDS: VIT A,C & E-LUTEIN-MINERALS 1 EACH TAB PO SCH (13:04)
[2021-02-02] MEDS: LOSARTAN 50 MG TAB PO SCH (13:05)
[2021-02-02] MEDS: VENLAFAXINE HCL ER 37.5 MG CAP PO SCH (13:05)
[2021-02-02 14:56] VITALS: BP 132/60; PULSE 73; RESP 16; TEMP 98.1
--- NOTE | 2021-02-02 19:05 | P.DS ---
Providers Date of admission: 01/31/21 11:49 Expected date of discharge: 02/02/21 Attending physician: Anahy Dasilva Consults: 01/30/21 21:32 Consult Physician Routine Consulting Provider: Liliam Pacheco Consult Reason/Comments: Low hemoglobin Do you want consulting provider notified?: Yes, Notify in am Primary care physician: Anahy Vidya [facility] Course: Diagnosis on discharge: Anemia with black tarry stools for 2 weeks Underlying history of hypertension maintained on losartan Underlying history of hyperlipidemia Underlying history of depression Underlying history of vitamin D deficiency Hospital course: Africa Martinez, his 65-year-old female who presented to [facility] with a chief complaint of fatigue and generalized weakness she had evidence of anemia with hemoglobin down to 7.0 she stated that she was having black stool for the last 2 weeks she was admitted to medical floor serial CBCs were ordered her subsequence CBC revealed a hemoglobin of 6.2 , 1 unit of red blood cell transfusion was ordered surgical consultation was requested for EGD and colonoscopy. She was evaluated in the emergency room her vital exam on presentation revealed a temperature of 98.3 heart rate 63 respiration 18 and blood pressure 122/54 pulse ox 100% on room air Laboratory data revealed a white blood count of 5.6 hemoglobin 7.6 platelet count 260 BUN 24 creatinine 0.85 coronavirus PCR was negative On 02/01/2021 patient alert and oriented 3. Patient received 1 unit PRBCs and hemoglobin improving to 8.2. Patient reports no further episodes of dark stools reports she had soft normal colored bowel movement yesterday. Denies any further episodes of nausea or vomiting has been tolerating a clear liquid diet. Patient was evaluated by surgical services and plans for colonoscopy and EGD tomorrow 02/02/2021. Labs currently pending for today. At this time patient denies chest pain or shortness breath. Patient denies nausea vomiting or diarrhea. Patient denies any urinary burning or frequency On 02/02/2021 patient was seen and examined on the medical floor she is alert and oriented 3 in no apparent distress she underwent EGD and colonoscopy with Dr. Pacheco today which revealed evidence of gastritis and diverticulosis without any evidence of active bleeding hemoglobin remained stable at 8.5 patient will be discharged home today proton X 40 mg by mouth daily was added to her medication regimen and ferrous sulfate 325 mg once daily was added to her medication regimen she will be followed in our office within 1 week. She was instructed to return to emergency room if having weakness shortness of breath or any evidence of active bleeding Plan - Discharge Summary Discharge Rx Participant: No New Discharge Prescriptions: New Ferrous Sulfate [Iron] 325 mg PO DAILY 30 Days #30 tablet Pantoprazole [Protonix] 40 mg PO DAILY 30 Days #30 tab Continue Venlafaxine HCl ER [Effexor XR] 37.5 mg PO Q48H Ergocalciferol [Vitamin D2 (1250 Mcg = 22897 Iu)] 1,250 mcg PO MO Simvastatin [Zocor] 40 mg PO HS Losartan Potassium 50 mg PO DAILY Aspirin EC [Ecotrin Low Dose] 81 mg PO DAILY carvediloL [Coreg] 3.125 mg PO BID Vits A,C,E/Lutein/Minerals [Ocuvite with Lutein Tablet] 1 tab PO DAILY Discharge Medication List Aspirin EC [Ecotrin Low Dose] 81 mg PO DAILY 01/30/21 [History] Ergocalciferol [Vitamin D2 (1250 Mcg = 35489 Iu)] 1,250 mcg PO MO 01/30/21 [History] Losartan Potassium 50 mg PO DAILY 01/30/21 [History] Simvastatin [Zocor] 40 mg PO HS 01/30/21 [History] Venlafaxine HCl ER [Effexor XR] 37.5 mg PO Q48H 01/30/21 [History] Vits A,C,E/Lutein/Minerals [Ocuvite with Lutein Tablet] 1 tab PO DAILY 01/30/21 [History] carvediloL [Coreg] 3.125 mg PO BID 01/30/21 [History] Ferrous Sulfate [Iron] 325 mg PO DAILY 30 Days #30 tablet 02/02/21 [Rx] Pantoprazole [Protonix] 40 mg PO DAILY 30 Days #30 tab 02/02/21 [Rx] Follow up Appointment(s)/Referral(s): Anahy Dasilva MD [Primary Care Provider] - 1-2 days (PLEASE CALL TO MAKE AN APPOINTMENT IN THE NEXT DAY OR TWO) Patient Instructions/Handouts: Gastrointestinal Bleeding (DC), Diverticulosis (DC) Discharge Disposition: HOME SELF-CARE
== END 2021-02-02 17:17 | disposition home or self-care (01) | DRG 379 ==
LOC: EC 11:27 → 6NMEDSUR 14:12 → 3SCARD 21:19 → OBSVTOIN 01-31 11:49
PROVIDERS: ADMIT Internal Medicine; ATTEND Internal Medicine
PROC: 0DJ08ZZ Inspection of Upper Intestinal Tract, Via Natural or Artificial Opening Endoscopic (ICD-10-PCS; principal; 2021-02-02 07:30)
PROC: 0DJD8ZZ Inspection of Lower Intestinal Tract, Via Natural or Artificial Opening Endoscopic (ICD-10-PCS; 2021-02-02 07:30)
DX: K57.31 Diverticulosis of large intestine without perforation or abscess with bleeding (principal); D64.9 Anemia, unspecified; E78.5 Hyperlipidemia, unspecified; I10 Essential (primary) hypertension; Z20.822 Contact with and (suspected) exposure to COVID-19; E55.9 Vitamin D deficiency, unspecified; F32.9 Major depressive disorder, single episode, unspecified; K29.70 Gastritis, unspecified, without bleeding; R53.1 Weakness; K44.9 Diaphragmatic hernia without obstruction or gangrene; Z79.82 Long term (current) use of aspirin; Z79.899 Other long term (current) drug therapy; Z87.891 Personal history of nicotine dependence; Z90.710 Acquired absence of both cervix and uterus; Z88.0 Allergy status to penicillin
CPT/HCPCS: 36415; 43235; 45378; 80053; 85025; 85610; 85730; 86850; 86900; 86901; 86920; 87635; 93005; 99285

== ENCOUNTER → 2021-03-18 | Outpatient (CLI) | payer BC ==
[2021-03-18 16:03] LABS: ALT 21 U/L (8-44); AST 18 U/L (13-35); Chol/HDL Ratio 3.72 Ratio; LDL Cholesterol,Calculated 94.2 mg/dL (0.0-131.0)
== END | disposition home or self-care (01) ==
LOC: LABWHC1 08:05
PROVIDERS: ATTEND Nurse Practitioner Adult Health
DX: E78.2 Mixed hyperlipidemia (principal)
CPT/HCPCS: 36415; 80061; 84450; 84460

== ENCOUNTER → 2021-07-08 | Outpatient (CLI) | payer BC ==
--- NOTE | 2021-07-08 08:32 | BD ---
EXAMINATION TYPE: Axial Bone Density DATE OF EXAM: 07/08/2021 COMPARISON: 04/17/2018 CLINICAL HISTORY: 65 years year old Female. ICD-10 CODE: N95.1 Height: 66.7 IN Weight: 197 LBS FRAX RISK QUESTIONS: Secondary Osteoporosis: 3. Menopause before 45: TOTAL HYST AGE 29 RISK FACTORS HISTORY OF: Active: YES Diet low in dairy products/other sources of calcium: YES Postmenopausal woman: TOTAL HYST AGE 29 Take estrogen and/or progesterone medications: NOT NOW How long: AGE 28-48 MEDICATIONS: Additional Medications: CALCIUM,BLOOD PRESSURE MEDS, CHOLESTEROL MEDS, HEART MEDS EXAM MEASUREMENTS: Bone mineral densitometry was performed using the [employer] System. Bone mineral density as measured about the Lumbar spine is: ----- L1-L4(G/cm2): 1.165 T Score Values are as follows: ----- L1: -0.9 ----- L2: -0.2 ----- L3: 0.4 ----- L4: -0.1 ----- L1-L4: -0.1 Bone mineral density has: Increased 5.7% since study of: 04/17/2018 Bone mineral density about the R hip (g/cm2): 0.856 Bone mineral density about the L hip (g/cm2): 0.837 T Score values are as follows: -----R Neck: -1.3 -----L Neck: -1.4 -----R Total: -0.9 -----L Total: -1.1 Bone mineral density has: Increased 0.9% since study of: 04/17/2018 FRAX%s: The graph provided illustrates a 8.3 chance for a major osteoporotic fx and a 0.8 chance for the hips probability for fx in 10 years time. IMPRESSION: Osteopenia of the left hip. NOTE: T-SCORE=SD OF THE YOUNG ADULT MEAN.
--- NOTE | 2021-07-08 11:22 | MM ---
Reason for exam: screening (asymptomatic). Last mammogram was performed 1 year ago. History: Patient is postmenopausal and is nulliparous. Took estrogen for 13 years beginning at age 29. Physical Findings: A clinical breast exam by your physician is recommended on an annual basis and results should be correlated with mammographic findings. MG 3D Screening Mammo W/Cad Bilateral CC and MLO view(s) were taken. Prior study comparison: June 23, 2020, bilateral MG screening mammo w CAD. April 26, 2019, bilateral MG screening mammo w CAD. The breast tissue is heterogeneously dense. This may lower the sensitivity of mammography. Stable benign calcifications. There is no discrete abnormality. No significant changes when compared with prior studies. ASSESSMENT: Benign, BI-RAD 2 RECOMMENDATION: Routine screening mammogram of both breasts in 1 year.
== END | disposition home or self-care (01) ==
LOC: RADMAMWWP 06:54
PROVIDERS: ATTEND Internal Medicine
DX: Z12.31 Encounter for screening mammogram for malignant neoplasm of breast (principal); M85.852 Other specified disorders of bone density and structure, left thigh; Z78.0 Asymptomatic menopausal state
CPT/HCPCS: 77063; 77067; 77080

== ENCOUNTER → 2021-09-16 | Outpatient (CLI) | payer BC ==
[2021-09-16 14:46] LABS: ALT 14 U/L (8-44); AST 23 U/L (13-35); African American GFR (CKD) 82.6 (60.0-200.0); Albumin 4.3 g/dL (3.8-4.9); Albumin/Globulin Ratio 1.41 (1.60-3.17); Alkaline Phosphatase 83 U/L (41-126); BUN/Creat Ratio 17.54 Ratio (12.00-20.00); Blood Urea Nitrogen 15.1 mg/dL (9.0-27.0); Calcium 9.4 mg/dL (8.7-10.3); Carbon Dioxide 26.6 mmol/L (20.0-27.5); Chloride 104 mmol/L (96-109); Globulin 3.1 g/dL (1.6-3.3); Glucose 98 mg/dL (70-110); LDL Cholesterol,Calculated 99.5 mg/dL (0.0-131.0); Non-African American GFR(CKD) 71.3 (60.0-200.0); Potassium 4.1 mmol/L (3.5-5.5); Sodium 141 mmol/L (135-145); Total Protein 7.4 g/dL (6.2-8.2)
== END | disposition home or self-care (01) ==
LOC: LABWHC1 07:52
PROVIDERS: ATTEND Internal Medicine Interventional Cardiology
DX: E78.2 Mixed hyperlipidemia (principal)
CPT/HCPCS: 36415; 80053; 80061

== ENCOUNTER → 2022-07-13 | Outpatient (CLI) | payer MEDICARE ==
--- NOTE | 2022-07-14 07:34 | MM ---
Reason for Exam: Screening (asymptomatic). Last screening mammogram was performed 12 month(s) ago. Patient History: Menarche at age 13. Patient has no children. Left ovary removed at age 29. Right ovary removed at age 29. Hysterectomy at age 29. Postmenopausal. Estrogen for 13 years from age 29 until age 41. Risk Values: Hilary 5 year model risk: 1.8%. NCI Lifetime model risk: 6.9%. Prior Study Comparison: 12/15/2015 Bilateral Screening Mammogram, [facility]. 12/15/2016 Bilateral Screening Mammogram, [facility]. 04/17/2018 Bilateral Screening Mammogram, [facility]. 04/26/2019 Bilateral Screening Mammogram, [facility]. 06/23/2020 Bilateral Screening Mammogram, [facility]. 07/08/2021 Bilateral Screening Mammogram, [facility]. Tissue Density: The breast tissue is heterogeneously dense. This may lower the sensitivity of mammography. Findings: Analyzed By CAD. There is no suspicious group of microcalcifications or new suspicious mass in either breast. Overall Assessment: Negative, BI-RAD 1 Management: Screening Mammogram of both breasts in 1 year. A clinical breast exam by your physician is recommended on an annual basis and results should be correlated with mammographic findings. [facility] will attempt to contact patient to return for supplemental views and ultrasound if indicated. Electronically signed and approved by: Oumar Zhao DO
== END | disposition home or self-care (01) ==
LOC: RADMAMWWP 07:17
PROVIDERS: ATTEND Internal Medicine
DX: Z12.31 Encounter for screening mammogram for malignant neoplasm of breast (principal); Z78.0 Asymptomatic menopausal state
CPT/HCPCS: 77063; 77067

== ENCOUNTER → 2023-04-20 | Outpatient (CLI) | payer MEDICARE ==
[2023-04-20 14:15] LABS: ALT 12 U/L (8-44); AST 14 U/L (13-35); Chol/HDL Ratio 3.34 Ratio; LDL Cholesterol,Calculated 88.4 mg/dL (0.0-131.0)
== END | disposition home or self-care (01) ==
LOC: LABWHC1 06:58
PROVIDERS: ATTEND Internal Medicine Interventional Cardiology
DX: E78.2 Mixed hyperlipidemia (principal)
CPT/HCPCS: 36415; 80061; 84450; 84460

== ENCOUNTER → 2023-07-19 | Outpatient (CLI) | payer MEDICARE ==
--- NOTE | 2023-07-20 08:13 | MM ---
Reason for Exam: Screening (asymptomatic). Last screening mammogram was performed 12 month(s) ago. Patient History: Menarche at age 13. Patient has no children. Left ovary removed at age 29. Right ovary removed at age 29. Hysterectomy at age 29. Postmenopausal. Estrogen for 13 years from age 29 until age 41. Risk Values: Hilary 5 year model risk: 1.9%. NCI Lifetime model risk: 6.7%. Prior Study Comparison: 06/23/2020 Bilateral Screening Mammogram, [facility]. 07/08/2021 Bilateral Screening Mammogram, [facility]. 07/13/2022 Bilateral MG 3D screening mammo w/cad, [facility]. Tissue Density: The breasts are heterogeneously dense, which may obscure small masses. Findings: Analyzed By CAD. Right breast: There is no suspicious group of microcalcifications or new suspicious mass. Left breast: There is no suspicious group of microcalcifications or new suspicious mass. Overall Assessment: Benign, BI-RAD 2 Management: Screening Mammogram of both breasts in [address] [facility] will attempt to contact patient to return for supplemental views and ultrasound if indicated. Patient should continue monthly self-breast exams. A clinical breast exam by your physician is recommended on an annual basis. This exam should not preclude additional follow-up of suspicious palpable abnormalities. Note on Hilary scores and lifetime risk: 1. A Hilary score greater than 3% is considered moderate risk. If this is the case, consider specialist referral to assess eligibility for a risk reducing agent. 2. If overall lifetime risk for the development of breast cancer is 20% or higher, the patient may qualify for future screening with alternating mammogram and breast MRI. Electronically signed and approved by: Oumar Zhao DO
== END | disposition home or self-care (01) ==
LOC: RADMAMWWP 08:07
PROVIDERS: ATTEND Internal Medicine
DX: Z12.31 Encounter for screening mammogram for malignant neoplasm of breast (principal); Z78.0 Asymptomatic menopausal state
CPT/HCPCS: 77063; 77067

== ENCOUNTER 2023-08-22 23:05 | Emergency (ER) | payer MEDICARE ==
--- NOTE | 2023-08-22 23:43 | ED ---
Abdominal Pain HPI - General Source: patient, RN notes reviewed Mode of arrival: ambulatory Limitations: no limitations <Vani Reid - Last Filed: 08/22/23 23:42> <Tobin Medina - Last Filed: 08/23/23 05:41> - General Stated Complaint: Left abd pain Time Seen by Provider: 08/22/23 23:42 - History of Present Illness Initial Comments: Quick note: 67-year-old female presented to the ER with a chief complaint of abdominal pain. She reports for approximately 1 week she has been having difficulty urinating. She states going to bed she started to endorsing severe left lower quadrant abdominal pain. She does not admit associated nausea. Denies fevers, chills, diarrhea, constipation. (Vani Reid) 67-year-old female presenting to the ED with complaints of abdominal pain. Patient reports over the past few days has had frequency, urgency, and feeling like she has been unable to completely void. Today noted left lower abdominal pain radiating to her back with some associated nausea. Denies fever or chills. No chest pain shortness of breath. No change in bowel habits. No other complaints at this time. (Tobin Medina) - Related Data Home Medications Medication Instructions Recorded Confirmed Aspirin EC [Ecotrin Low Dose] 81 mg PO DAILY 01/30/21 01/30/21 Ergocalciferol [Vitamin D2 (1250 1,250 mcg PO MO 01/30/21 01/30/21 Mcg = 56597 Iu)] Losartan Potassium 50 mg PO DAILY 01/30/21 01/30/21 Simvastatin [Zocor] 40 mg PO HS 01/30/21 01/30/21 Venlafaxine HCl ER [Effexor XR] 37.5 mg PO Q48H 01/30/21 01/30/21 Vits A,C,E/Lutein/Minerals 1 tab PO DAILY 01/30/21 01/30/21 [Ocuvite with Lutein Tablet] carvediloL [Coreg] 3.125 mg PO BID 01/30/21 01/30/21 Previous Rx's Medication Instructions Recorded Ferrous Sulfate [Iron] 325 mg PO DAILY 30 Days #30 tablet 02/02/21 Pantoprazole [Protonix] 40 mg PO DAILY 30 Days #30 tab 02/02/21 Sulfamethox-Tmp 800-160Mg [Bactrim 1 each PO Q12HR 14 Days #28 tab 08/23/23 Ds] Tamsulosin [Flomax] 0.4 mg PO DAILY #7 cap 08/23/23 Allergies Allergy/AdvReac Type Severity Reaction Status Date / Time omeprazole [From Prilosec] Allergy Rash/Hives Verified 08/23/23 00:00 penicillin G AdvReac Unknown Unknown Verified 01/30/21 14:41 Review of Systems ROS Other: All systems not noted in ROS Statement are negative. <Vani Reid - Last Filed: 08/22/23 23:42> ROS Other: All systems not noted in ROS Statement are negative. <Tobin Medina - Last Filed: 08/23/23 05:41> ROS Statement: Those systems with pertinent positive or pertinent negative responses have been documented in the HPI. Past Medical History Past Medical History: No Reported History, Hyperlipidemia, Hypertension History of Any Multi-Drug Resistant Organisms: None Reported Past Surgical History: Hysterectomy Past Psychological History: No Psychological Hx Reported Smoking Status: Former smoker Past Alcohol Use History: None Reported Past Drug Use History: None Reported <Vani Reid - Last Filed: 08/22/23 23:42> General Exam <Vani Reid - Last Filed: 08/22/23 23:42> General appearance: alert, in no apparent distress Eye exam: Present: normal appearance Neck exam: Present: normal inspection Respiratory exam: Present: normal lung sounds bilaterally Cardiovascular Exam: Present: regular rate GI/Abdominal exam: Present: soft (Left lower quadrant tenderness to palpation. No rebound guarding or rigidity. Bowel sounds active. Left CVA tenderness to percussion.) Neurological exam: Present: alert, oriented X3 Skin exam: Present: warm, dry <Tobin Medina - Last Filed: 08/23/23 05:41> - General Exam Comments Initial Comments: Visual Physical Exam Vital signs reviewed General: Well-appearing, nontoxic, no acute distress. Head: Normocephalic, atraumatic Eyes: PERRLA, EOMI ENT: Airway patent Chest: Nonlabored breathing Skin: No visual rash, normal skin tone Neuro: Alert and oriented 3 Musculoskeletal: No gross abnormalities (Vani Reid) Course Vital Signs 08/22/23 08/23/23 23:56 02:20 Temperature 97.5 F L Pulse Rate 53 L 67 Respiratory 20 18 Rate Blood Pressure 168/89 138/75 O2 Sat by Pulse 98 97 Oximetry Medical Decision Making <Vani Reid - Last Filed: 08/22/23 23:42> - Lab Data Result diagrams: 08/23/23 00:35 08/23/23 00:35 <Tobin Medina - Last Filed: 08/23/23 05:41> - Medical Decision Making I performed the quick note portion of this chart. Electronically signed by Vani Reid PA-C (Vain Reid) Was pt. sent in by a medical professional or institution ([facility]ABHJOT Landa, QUALITY IMPROVEMENT ANALYST, urgent care, hospital, or retirement...) When possible be specific @ -No Did you speak to anyone other than the patient for history (EMS, parent, family, police, friend...)? What history was obtained from this source @ -No Did you review nursing and triage notes (agree or disagree)? Why? @ -I reviewed and agree with nursing and triage notes Were old charts reviewed (outside hosp., previous admission, EMS record, old EKG, old radiological studies, urgent care reports/EKG's, retirement records)? Report findings @ -No old charts were reviewed Differential Diagnosis (chest pain, altered mental status, abdominal pain women, abdominal pain men, vaginal bleeding, weakness, fever, dyspnea, syncope, headache, dizziness, GI bleed, back pain, seizure, CVA, palpatations, mental health, musculoskeletal)? @ -Differential Abdominal Pain Women: Appendicitis, Cholecystitis, diverticulosis, ischemic bowel, pancreatitis, hepatitis, UTI, gastroenteritis, AAA, incarcerated hernia, bowel obstruction, constipation, inflammatory bowel, hepatitis, peptic ulcer disease, splenic infarction, perforated viscus, vulvitis, ovarian torsion, PID, kidney stone, placenta abruption, this is not meant to be an all-inclusive list EKG interpreted by me (3pts min.). @ -None X-rays interpreted by me (1pt min.). @ -None done CT interpreted by me (1pt min.). @ -CT abdomen pelvis interpreted me showing a 6 mm distal left ureteral stone with mild to moderate left hydronephrosis and mild left periureteral fat stranding. Also finding of incidental hiatal hernia. U/S interpreted by me (1pt. min.). @ -None done What testing was considered but not performed or refused? (CT, X-rays, U/S, lab s)? Why? @ -None What meds were considered but not given or refused? Why? @ -None Did you discuss the management of the patient with other professionals (professionals i.e. Dr., PA, QUALITY IMPROVEMENT ANALYST, lab, RT, psych nurse, mental health social worker, access manager, teacher, department of natural resources officer, casino cage manager)? Give summary @ -No Was smoking cessation discussed for >3mins.? @ -No Was critical care preformed (if so, how long)? @ -No Were there social determinants of health that impacted care today? How? (Homelessness, low income, unemployed, alcoholism, drug addiction, transportation, low edu. Level, literacy, decrease access to med. care, [facility], rehab)? @ -No Was there de-escalation of care discussed even if they declined (Discuss DNR or withdrawal of care, Hospice)? DNR status @ -No What co-morbidities impacted this encounter? (DM, HTN, Smoking, COPD, CAD, Cancer, CVA, ARF, Chemo, Hep., AIDS, mental health diagnosis, sleep apnea, morbid obesity)? @ -None Was patient admitted / discharged? Hospital course, mention meds given and route, prescriptions, significant lab abnormalities, going to OR and other pertinent info. @ -Discharge 67-year-old female presented to the ED with complaints of dysuria with onset of abdominal pain and flank pain today. Laboratory studies reviewed. CBC shows no elevation of white blood cell count. Chemistry panel unremarkable. UA does show some evidence of infection with small leukocyte esterase, 29 white blood cells, rare bacteria. CT abdomen pelvis reviewed which did show distal 6 mm left ureteral stone with mild to moderate hydronephrosis and mild left periure teral fat stranding. At this time after analgesia IV fluids patient reports pain is completely resolved. Urine culture obtained. Discharged home in stable condition with prescription for Flomax and Bactrim and referral to see urology. Also provide urinary strainer. discussed strict return precautions with patient who verbalized agreement. Undiagnosed new problem with uncertain prognosis? @ -No Drug Therapy requiring intensive monitoring for toxicity (Heparin, Nitro, Insulin, Cardizem)? @ -No Were any procedures done? @ -No Diagnosis/symptom? @ -Kidney stone Acute, or Chronic, or Acute on Chronic? @ -Acute Uncomplicated (without systemic symptoms) or Complicated (systemic symptoms)? @ -Uncomplicated Side effects of treatment? @ -No Exacerbation, Progression, or Severe Exacerbation? @ -No Poses a threat to life or bodily function? How? (Chest pain, USA, OR, pneumonia, PE, COPD, DKA, ARF, appy, cholecystitis, CVA, Diverticulitis, Homicidal, Suicidal, threat to staff... and all critical care pts) @ -No (Tobin Medina) - Lab Data Lab Results 08/23/23 08/23/23 08/23/23 Range/Units 00:35 00:35 00:35 WBC 6.9 (3.8-10.6) k/uL RBC 4.41 (3.80-5.40) m/uL Hgb 13.6 (11.4-16.0) gm/dL Hct 42.5 (34.0-46.0) % MCV 96.4 (80.0-100.0) fL MCH 31.0 (25.0-35.0) pg MCHC 32.1 (31.0-37.0) g/dL RDW 14.0 (11.5-15.5) % Plt Count 205 (150-450) k/uL MPV 8.3 Neutrophils % 55 % Lymphocytes % 32 % Monocytes % 7 % Eosinophils % 3 % Basophils % 1 % Neutrophils # 3.8 (1.3-7.7) k/uL Lymphocytes # 2.2 (1.0-4.8) k/uL Monocytes # 0.5 (0-1.0) k/uL Eosinophils # 0.2 (0-0.7) k/uL Basophils # 0.0 (0-0.2) k/uL Sodium 137 (137-145) mmol/L Potassium 4.4 (3.5-5.1) mmol/L Chloride 107 (98-107) mmol/L Carbon Dioxide 24 (22-30) mmol/L Anion Gap 6 mmol/L BUN 23 H (7-17) mg/dL Creatinine 0.80 (0.52-1.04) mg/dL Est GFR (CKD-EPI)AfAm 89 (>60 ml/min/1.73 sqM) Est GFR (CKD-EPI)NonAf 77 (>60 ml/min/1.73 sqM) Glucose 109 H (74-99) mg/dL Plasma Lactic Acid [place] 1.2 (0.7-2.0) mmol/L Calcium 9.5 (8.4-10.2) mg/dL Total Bilirubin 0.6 (0.2-1.3) mg/dL AST 23 (14-36) U/L ALT 16 (4-34) U/L Alkaline Phosphatase 78 (38-126) U/L Total Protein 7.2 (6.3-8.2) g/dL Albumin 4.4 (3.5-5.0) g/dL Amylase 63 (30-110) U/L Lipase 119 (23-300) U/L Urine Color Urine Appearance (Clear) Urine pH (5.0-8.0) Ur Specific [place] (1.001-1.035) Urine Protein (Negative) Urine Glucose (UA) (Negative) Urine Ketones (Negative) Urine Blood (Negative) Urine Nitrite (Negative) Urine Bilirubin (Negative) Urine Urobilinogen (<2.0) mg/dL Ur Leukocyte Esterase (Negative) Urine RBC (0-5) /hpf Urine WBC (0-5) /hpf Ur Squamous Epith Cells (0-4) /hpf Calcium Oxalate Crystal (None) /hpf Urine Bacteria (None) /hpf Hyaline Casts (0-2) /lpf Urine Mucus (None) /hpf 08/23/23 Range/Units 03:48 WBC (3.8-10.6) k/uL RBC (3.80-5.40) m/uL Hgb (11.4-16.0) gm/dL Hct (34.0-46.0) % MCV (80.0-100.0) fL MCH (25.0-35.0) pg MCHC (31.0-37.0) g/dL RDW (11.5-15.5) % Plt Count (150-450) k/uL MPV Neutrophils % % Lymphocytes % % Monocytes % % Eosinophils % % Basophils % % Neutrophils # (1.3-7.7) k/uL Lymphocytes # (1.0-4.8) k/uL Monocytes # (0-1.0) k/uL Eosinophils # (0-0.7) k/uL Basophils # (0-0.2) k/uL Sodium (137-145) mmol/L Potassium (3.5-5.1) mmol/L Chloride (98-107) mmol/L Carbon Dioxide (22-30) mmol/L Anion Gap mmol/L BUN (7-17) mg/dL Creatinine (0.52-1.04) mg/dL Est GFR (CKD-EPI)AfAm (>60 ml/min/1.73 sqM) Est GFR (CKD-EPI)NonAf (>60 ml/min/1.73 sqM) Glucose (74-99) mg/dL Plasma Lactic Acid [place] (0.7-2.0) mmol/L Calcium (8.4-10.2) mg/dL Total Bilirubin (0.2-1.3) mg/dL AST (14-36) U/L ALT (4-34) U/L Alkaline Phosphatase (38-126) U/L Total Protein (6.3-8.2) g/dL Albumin (3.5-5.0) g/dL Amylase (30-110) U/L Lipase (23-300) U/L Urine Color Yellow Urine Appearance Clear (Clear) Urine pH 5.5 (5.0-8.0) Ur Specific [place] 1.027 (1.001-1.035) Urine Protein Trace H (Negative) Urine Glucose (UA) Negative (Negative) Urine Ketones Negative (Negative) Urine Blood Negative (Negative) Urine Nitrite Negative (Negative) Urine Bilirubin Negative (Negative) Urine Urobilinogen <2.0 (<2.0) mg/dL Ur Leukocyte Esterase Small H (Negative) Urine RBC 4 (0-5) /hpf Urine WBC 29 H (0-5) /hpf Ur Squamous Epith Cells 3 (0-4) /hpf Calcium Oxalate Crystal Many H (None) /hpf Urine Bacteria Rare H (None) /hpf Hyaline Casts 10 H (0-2) /lpf Urine Mucus Few H (None) /hpf Disposition <Vani Reid - Last Filed: 08/22/23 23:42> Is patient prescribed a controlled substance at d/c from ED?: No Time of Disposition: 05:41 <Tobin Medina - Last Filed: 08/23/23 05:41> Clinical Impression: Kidney stone Disposition: HOME SELF-CARE Condition: Good Instructions (If sedation given, give patient instructions): Kidney Stones (ED) Additional Instructions: Please return to the Emergency Department if symptoms worsen or any other concerns. Please follow-up with your PCP and urology. Prescriptions: Sulfamethox-Tmp 800-160Mg [Bactrim Ds] 1 each PO Q12HR 14 Days #28 tab Tamsulosin [Flomax] 0.4 mg PO DAILY #7 cap Referrals: Anahy Dasilva MD [Primary Care Provider] - 1-2 days Yandel Vasquez MD [STAFF PHYSICIAN] - 1-2 days Cooper Adrian MD [STAFF PHYSICIAN] - 1-2 days
[2023-08-22 23:59] VITALS: TEMP 97.5
[2023-08-23 01:03] LABS: Basophils % (A) 1 %; Eosinophils # (A) 0.2 k/uL (0-0.7); Eosinophils % (A) 3 %; HCT 42.5 % (34.0-46.0); HGB 13.6 gm/dL (11.4-16.0); Lymphocytes # (A) 2.2 k/uL (1.0-4.8); Lymphocytes % (A) 32 %; MCHC 32.1 g/dL (31.0-37.0); MCV 96.4 fL (80.0-100.0); Mean Platelet Volume 8.3; Monocytes # (A) 0.5 k/uL (0-1.0); Monocytes % (A) 7 %; Neutrophils # (A) 3.8 k/uL (1.3-7.7); Neutrophils % (A) 55 %; Platelet Count 205 k/uL (150-450); RBC 4.41 m/uL (3.80-5.40); WBC 6.9 k/uL (3.8-10.6)
[2023-08-23] MEDS: KETOROLAC 15 MG/ML 1 ML VIAL IVP STA (01:16)
[2023-08-23] MEDS: SODIUM CHLORIDE 0.9% 1,000 ML IV STA (01:17)
[2023-08-23] MEDS: ACETAMINOPHEN TAB 500 MG TAB PO STA (01:17)
[2023-08-23 01:25] LABS: ALT 16 U/L (4-34); AST 23 U/L (14-36); African American GFR (CKD) 89 (>60 ml/min/1.73 sqM); Albumin 4.4 g/dL (3.5-5.0); Alkaline Phosphatase 78 U/L (38-126); Amylase 63 U/L (30-110); Anion Gap 6 mmol/L; Blood Urea Nitrogen 23 mg/dL (7-17); Calcium 9.5 mg/dL (8.4-10.2); Carbon Dioxide 24 mmol/L (22-30); Chloride 107 mmol/L (98-107); Glucose 109 mg/dL (74-99); Lipase 119 U/L (23-300); Non-African American GFR(CKD) 77 (>60 ml/min/1.73 sqM); Potassium 4.4 mmol/L (3.5-5.1); Sodium 137 mmol/L (137-145); Total Bilirubin 0.6 mg/dL (0.2-1.3); Total Protein 7.2 g/dL (6.3-8.2)
[2023-08-23] MEDS: MORPHINE SULFATE 4 MG/ML SYRINGE IVP STA (01:32)
[2023-08-23] MEDS: ONDANSETRON 4 MG/2 ML VIAL IVP STA (01:32)
[2023-08-23 02:26] VITALS: RESP 18
--- NOTE | 2023-08-23 03:35 | CT ---
EXAM: CT Abdomen and Pelvis Without Intravenous Contrast CLINICAL HISTORY: LLQ pain, dysuria r/o stone TECHNIQUE: Axial computed tomography images of the abdomen and pelvis without intravenous contrast. CTDI is 13.5 mGy and DLP is 761.8 mGy-cm. This CT exam was performed using one or more of the following dose reduction techniques: automated exposure control, adjustment of the mA and/or kV according to patient size, and/or use of iterative reconstruction technique. COMPARISON: No relevant prior studies available. FINDINGS: Lung bases: Unremarkable. No mass. No consolidation. Mediastinum: Hiatal hernia containing the fundus and superior to mid body of the stomach in the posterior mediastinum. The herniated stomach is mild to moderately distended with fluid. No gastric mucosal thickening or perigastric fat stranding in the posterior mediastinum. ABDOMEN: Liver: Unremarkable. Gallbladder and bile ducts: Unremarkable. No calcified stones. No ductal dilation. Pancreas: Unremarkable. No ductal dilation. Spleen: Unremarkable. No splenomegaly. Adrenals: Unremarkable. No mass. Kidneys and ureters: 6 mm distal left ureteral stone with mild to moderate left hydroureteronephrosis and mild left periureteral fat stranding. Incidental subcentimeter nephrolithiasis noted involving the superior and midpole of the right kidney measuring 2-3 mm. No right hydronephrosis or ureteral stones. Stomach and bowel: No evidence for bowel obstruction. Evaluation of the bowel mucosa is limited without contrast. Scattered diverticulosis of the descending and sigmoid colon. No obvious diverticulitis. PELVIS: Appendix: No findings to suggest acute appendicitis. Bladder: The bladder is decompressed. No significant bladder wall thickening or additional bladder stones. Reproductive: Status post hysterectomy. ABDOMEN and PELVIS: Intraperitoneal space: Unremarkable. No free air. No significant fluid collection. Bones/joints: Degenerative changes of the lumbar spine. No acute fracture. No dislocation. Soft tissues: Unremarkable. Vasculature: Unremarkable. No abdominal aortic aneurysm. Lymph nodes: Unremarkable. No enlarged lymph nodes. IMPRESSION: 1. 6 mm distal left ureteral stone with mild to moderate left hydroureteronephrosis and mild left periureteral fat stranding. 2. Hiatal hernia containing the fundus and superior to mid body of the stomach in the posterior mediastinum. The herniated stomach is mild to moderately distended with fluid. No gastric mucosal thickening or perigastric fat stranding in the posterior mediastinum. This is a presumed incidental finding.
[2023-08-23 05:12] LABS: Appearance,Urine Clear (Clear); Bacteria,Urine Rare /hpf; Bilirubin,Urine Negative (Negative); Blood,Urine Negative (Negative); Calcium Oxalate Crystals,Urine Many /hpf; Color,Urine Yellow; Glucose,Urine (UA) Negative (Negative); Hyaline Casts,Urine 10 /lpf (0-2); Ketones,Urine Negative (Negative); Leukocyte Esterase,Urine Small (Negative); Mucus,Urine Few /hpf; Nitrite,Urine Negative (Negative); PH, Urine 5.5 (5.0-8.0); Protein,Urine Trace (Negative); RBC,Urine 4 /hpf (0-5); Specific Gravity,Urine 1.027 (1.001-1.035); Squamous Epithelial Cell,Urine 3 /hpf (0-4); Urobilinogen,Urine <2.0 mg/dL (<2.0); WBC,Urine 29 /hpf (0-5)
[2023-08-23 05:55] VITALS: BP 128/76; PULSE 58
[2023-08-23] MEDS: ONDANSETRON 4 MG ODT STARTER PACK 2 TAB BTL PO STA (05:55)
[2023-08-23] MEDS: SULFAMETH-TMP DS STARTER PACK 2 TAB BTL PO STA (05:55)
[2023-08-23] MEDS: ACET/COD 300 MG/30 MG STARTER PACK 6 TAB BTL PO STA (05:55)
== END 2023-08-23 05:59 | disposition home or self-care (01) ==
LOC: EC 23:05
DX: K44.9 Diaphragmatic hernia without obstruction or gangrene (principal); N13.2 Hydronephrosis with renal and ureteral calculous obstruction; Z87.891 Personal history of nicotine dependence; Z88.0 Allergy status to penicillin; Z88.8 Allergy status to other drugs, medicaments and biological substances
CPT/HCPCS: 36415; 80053; 82150; 83605; 83690; 85025; 81001; 87086; 74176; 99284; 96374; 96375 ×2; 96361; J2270; J2405; J1885; S0119

== ENCOUNTER 2023-08-30 11:41 | Day surgery (SDC) | payer MEDICARE ==
--- NOTE | 2023-08-30 10:00 | P.HPIHPCON ---
History of Present Illness H&P Date: 08/30/23 Chief Complaint: Left ureteral stone This is a 67-year-old female with a history of 6 mm left-sided distal stone, she is symptomatic from her stone. Option of left-sided ureteroscopy with holmium laser was discussed with her, aware the risk which includes but not limited to bleeding, infection, injury to the ureter Consent for Procedure: I have explained the operation/procedure to the patient, including the risks, benefits, side effects, alternative therapies (including not receiving the proposed treatment or service), the likelihood of the patient achieving his/her goals, and potential recuperation problems for the procedure/sedation/analgesia, as well as any blood products, if indicated. I also explained to the patient the risks, benefits and side effects of the alternatives, as well as the risks related to not receiving the proposed procedure, care, treatment, or services. Past Medical History Past Medical History: Hyperlipidemia, Hypertension Additional Past Medical History / Comment(s): cardiomyopathy, current kidney stones. History of Any Multi-Drug Resistant Organisms: None Reported Past Surgical History: Hysterectomy Additional Past Surgical History / Comment(s): colonoscopy Past Anesthesia/Blood Transfusion Reactions: No Reported Reaction Smoking Status: Former smoker - Past Family History Father Family Medical History: AFIB Mother Family Medical History: AFIB Sister(s) Family Medical History: AFIB Additional Family Medical History / Comment(s): pacemaker Medications and Allergies Home Medications Medication Instructions Recorded Confirmed Type Aspirin EC [Ecotrin Low Dose] 81 mg PO DAILY 01/30/21 08/26/23 History Ergocalciferol [Vitamin D2 (1250 1,250 mcg PO MO 01/30/21 08/26/23 History Mcg = 34084 Iu)] Losartan Potassium 50 mg PO DAILY 01/30/21 08/26/23 History Simvastatin [Zocor] 40 mg PO HS 01/30/21 08/26/23 History Vits A,C,E/Lutein/Minerals 1 tab PO DAILY 01/30/21 08/26/23 History [Ocuvite with Lutein Tablet] carvediloL [Coreg] 3.125 mg PO BID 01/30/21 08/26/23 History Ferrous Sulfate [Iron] 325 mg PO DAILY 30 Days #30 tablet 02/02/21 08/26/23 Rx Sulfamethox-Tmp 800-160Mg [Bactrim 1 each PO Q12HR 14 Days #28 tab 08/23/23 08/26/23 Rx Ds] Otc Calcium /Vitamin D 1 tab PO DAILY 08/26/23 08/26/23 History Allergies Allergy/AdvReac Type Severity Reaction Status Date / Time penicillin G Allergy Unknown redness Verified 08/26/23 09:33 and itching omeprazole [From Prilosec] Allergy Rash/Hives Verified 08/26/23 09:33 Surgical - Exam - General no distress, moderate pain - Eyes normal ocular movement, no pale - ENT normal nares, normal mucosa - Respiratory normal expansion, normal respiratory effort - Abdomen Abdomen: soft, non tender Assessment and Plan Assessment: OR for left-sided ureteroscopy, holmium laser lithotripsy, stone basketing and stent insertion
[~2023-08-30 11:41] MED LIST: HYDROmorphone 0.5 MG/0.5 ML SYRINGE IVP PRN; MIDAZOLAM 2 MG/2 ML VIAL IV PRN
--- NOTE | 2023-08-30 11:59 | XR ---
EXAMINATION TYPE: XR KUB DATE OF EXAM: 08/30/2023 COMPARISON: NONE HISTORY: Preop TECHNIQUE: One view abdominal series FINDINGS: The osseous structures are intact. The bowel gas pattern is nonspecific. Degenerative change of the spine. Calcification left hemipelvis could be related to distal ureteral calculus measuring a diameter of 4 mm. Right kidney: Punctate calcification seen within the right kidney by previous CT scan not well seen l ikely obscured by bowel content. Left kidney: No suspicious calcifications. IMPRESSION: 1. Findings suggestive of distal left ureteral calculus measuring 4 mm in diameter..
[2023-08-30] MEDS: IV FLUID CONTINUATION 1,000 ML IV ONE ×2 (12:50→14:18)
[2023-08-30] MEDS: ONDANSETRON 4 MG/2 ML VIAL IVP ONE (12:55)
[2023-08-30] MEDS: DEXAMETHASONE SOD PHOSPHATE 4 MG/ML 1 ML VIAL IV ONE (12:55)
[2023-08-30] MEDS: LACTATED RINGERS 1,000 ML IV SCH (12:56)
[2023-08-30] MEDS ORDERED: fentaNYL (PF) 50 MCG/ML 2 ML AMP ONE (14:15)
[2023-08-30] MEDS ORDERED: MIDAZOLAM 2 MG/2 ML VIAL ONE (14:15)
[2023-08-30] MEDS ORDERED: LIDOCAINE 1% INJ 10MG/ML (20 ML MDV) ONE (14:15)
[2023-08-30] MEDS ORDERED: PROPOFOL 10 MG/ML 20 ML VIAL IV ONE (14:15)
[2023-08-30] MEDS ORDERED: ePHEDrine 50 MG/ML 1 ML VIAL ONE (14:15)
[2023-08-30] MEDS: CIPROFLOXACIN/DEXTROSE PMX 400 MG in DEXTROSE/WATER 1 200ML.BAG IVPB PRN (14:20)
--- NOTE | 2023-08-30 15:03 | P.OP ---
Date of Procedure: 08/30/23 Preoperative Diagnosis: Left ureteral stone Postoperative Diagnosis: same Procedure(s) Performed: Cystoscopy, left ureteroscopy, lithotripsy, stone basketing and stent insertion Implants: 6 [place] by 26 cm stent in the left ureter left on a string Anesthesia: EBONY Surgeon: Yandel Vasquez Estimated Blood Loss (ml): 5 Pathology: other (left ureteral stone) Condition: stable Disposition: PACU Indications for Procedure: This is a 67-year-old female with a history of 6 mm left-sided distal stone, she is symptomatic from her stone. Option of left-sided ureteroscopy with holmium laser was discussed with her, aware the risk which includes but not limited to bleeding, infection, injury to the ureter Description of Procedure: Patient brought to the operating room, general esthesia was induced. She was prepped and draped in sterile fashion placed in a dorsolithotomy position. Cystoscopy with a 21 [place]i sheath was inserted per urethra, cystoscopy was performed showed no abnormality within the bladder. This demonstrates the semirigid ureteroscope was inserted per urethra, the scope was advanced up the left ureteral orifice, at this point a stone was encountered in the distal ureter. Using the holmium laser the stone was fragmented, stone fragments were removed using the stone basket. This time I advanced the ureteroscope all the way up to the proximal ureter which showed no additional stones, pullback ureteroscopy was performed showed no injury to the ureter or any ureteral stones, there was some ureteral edema at the site of the stone thus the decision was made to proceed with a stent, at this point the sensor wire was advanced through the ureteroscope and the ureteroscope was withdrawn with the wire in place. Next ureteral stent was passed over the wire, the proximal curl visualized on fluoroscopy and the distal curl was visualized using the cystoscope. The stent was left on a string and taped to the patient left thigh. Patient was awakened from anesthesia and taken to recovery in stable condition
[2023-08-30 15:12] VITALS: TEMP 96.9
[2023-08-30 15:57] VITALS: BP 137/83; PULSE 60; RESP 16
--- NOTE | 2023-08-31 07:34 | FL ---
EXAMINATION TYPE: FL guidance operating room DATE OF EXAM: 08/30/2023 HISTORY: Fluoroscopy time Total dose area product (DAP) in uGy*m?, mGy*cm? (or similar): 0.10815 IMPRESSION: 1. Fluoroscopy time.
== END 2023-08-30 16:16 | disposition home or self-care (01) ==
LOC: OR 11:41
PROVIDERS: ATTEND Urology
DX: N20.1 Calculus of ureter (principal); I10 Essential (primary) hypertension; E78.5 Hyperlipidemia, unspecified; I42.9 Cardiomyopathy, unspecified; Z87.891 Personal history of nicotine dependence; Z79.82 Long term (current) use of aspirin; Z88.0 Allergy status to penicillin; Z88.8 Allergy status to other drugs, medicaments and biological substances; Z79.899 Other long term (current) drug therapy
CPT/HCPCS: 82365; 74018; 52356; C2625; C1769; J2250; J1100; J2405; J2001; J3010; J0744; J2704

== ENCOUNTER → 2024-02-27 | Outpatient (CLI) | payer MEDICARE ==
--- NOTE | 2024-02-27 15:30 | XR ---
EXAMINATION TYPE: XR lumbosacral spine min 4V DATE OF EXAM: 02/27/2024 2:27 PM COMPARISON: 08/23/2023 CLINICAL INDICATION: Female, 68 years old with history of M54.50 LOW BACK PAIN, UNSPECIFIED M25.552 p ain lef; [facility] TECHNIQUE: XR lumbosacral spine min 4V - Frontal, lateral , bilateral oblique and coned in L5-S1 late ral views of the spine. FINDINGS: No evidence of any acute osseous pathology. No evidence of loss of vertebral body height i s seen. There is normal alignment of the lumbar vertebral bodies. Mild scattered disc space narrowing . Multilevel marginal osteophyte formation throughout the visualized spine. There is facet joint arth ropathy throughout the spine. Scattered at least mild neural foraminal stenosis worse at L5-S1. Moder ate degeneration changes at L5-S1. IMPRESSION: 1. No acute fracture. 2. Mild multilevel disc degeneration with more moderate at L5-S1. [facility], , 02/27/2024 3:28 PM
--- NOTE | 2024-02-27 15:31 | XR ---
EXAMINATION TYPE: XR Hip Complete LT DATE OF EXAM: 02/27/2024 2:27 PM COMPARISON: None CLINICAL INDICATION: Female, 68 years old with history of M54.50 LOW BACK PAIN, UNSPECIFIED M25.552 p ain lef; PHH, pain TECHNIQUE: XR Hip Complete LT; Frontal and lateral views FINDINGS: No evidence for acute process, joint dislocation or significant soft tissue swelling. Osteo phyte formation of the superior acetabulum of the hip. There is mild joint space narrowing. IMPRESSION: 1. No evidence for acute process. 2. Mild hip osteoarthrosis. [facility], , 02/27/2024 3:29 PM
== END | disposition home or self-care (01) ==
LOC: RADXRMAIN 13:51
PROVIDERS: ATTEND Internal Medicine
DX: M51.379 Other intervertebral disc degeneration, lumbosacral region without mention of lumbar back pain or lower extremity pain (principal); M99.73 Connective tissue and disc stenosis of intervertebral foramina of lumbar region; M47.897 Other spondylosis, lumbosacral region; M16.12 Unilateral primary osteoarthritis, left hip; W19.XXXA Unspecified fall, initial encounter
CPT/HCPCS: 72110; 73502

== ENCOUNTER → 2024-04-23 | Outpatient (CLI) | payer MEDICARE ==
[2024-04-23 10:46] LABS: ALT 16 U/L (8-44); AST 18 U/L (13-35); Albumin/Globulin Ratio 1.54 Ratio (1.60-3.17); Alkaline Phosphatase 77 U/L (41-126); BUN/Creat Ratio 20.56 Ratio (12.00-20.00); Blood Urea Nitrogen 18.5 mg/dL (9.0-27.0); Calcium 8.9 mg/dL (8.7-10.3); Carbon Dioxide 26.7 mmol/L (21.6-31.8); Chloride 106 mmol/L (96-109); Chol/HDL Ratio 3.17 Ratio; Globulin 2.6 g/dL (1.6-3.3); Glucose 101 mg/dL (70-110); LDL Cholesterol,Calculated 90.8 mg/dL (0.0-131.0); Potassium 4.3 mmol/L (3.5-5.5); Sodium 142 mmol/L (135-145); Total Bilirubin 0.4 mg/dL (0.3-1.2); Total Protein 6.6 g/dL (6.2-8.2)
== END | disposition home or self-care (01) ==
LOC: LABWHC1 06:56
PROVIDERS: ATTEND Internal Medicine Interventional Cardiology
DX: E78.2 Mixed hyperlipidemia (principal)
CPT/HCPCS: 36415; 80053; 80061

== ENCOUNTER → 2024-07-10 | Outpatient (CLI) | payer MEDICARE ==
--- NOTE | 2024-07-10 10:49 | FL ---
EXAMINATION TYPE: FL barium swallow DATE OF EXAM: 07/10/2024 9:11 AM COMPARISON: None. CLINICAL INDICATION: Female, 68 years old with history of R09.89 SIGNS SX OF CIRCULATORY SYSTEM, Dysp hagia TECHNIQUE: Esophagram was performed per the air contrast technique. The patient swallowed barium and effervescent crystals without difficulty or delay. FINDINGS: Esophageal peristalsis and motility appear to be within normal limits. There is no evidence for filling defect, mass or diverticulum. There is a moderately large paraesophageal hiatal hernia. Subsequently single contrast cervical esophagram was performed which fails demonstrate evidence for a spiration penetration or mass. IMPRESSION: There is a moderately large paraesophageal hiatal hernia. [facility], , 07/10/2024 10:47 AM
== END | disposition home or self-care (01) ==
LOC: RADFLMAIN 08:23
PROVIDERS: ATTEND Otolaryngology
DX: K44.9 Diaphragmatic hernia without obstruction or gangrene (principal); R09.89 Other specified symptoms and signs involving the circulatory and respiratory systems
CPT/HCPCS: 74220

== ENCOUNTER 2024-07-19 07:47 | Day surgery (SDC) | payer MEDICARE ==
[2024-07-18 10:49] VITALS: BMI 29.6
[2024-07-19 08:51] VITALS: TEMP 97.2
[2024-07-19] MEDS: LACTATED RINGERS 1,000 ML IV SCH (09:00)
[2024-07-19] MEDS: IV FLUID CONTINUATION 1,000 ML IV ONE (09:01)
[2024-07-19] MEDS ORDERED: PROPOFOL 10 MG/ML 20 ML VIAL IV ONE (10:55)
--- NOTE | 2024-07-19 10:59 | P.GSHP ---
History of Present Illness H&P Date: 07/19/24 Chief Complaint: Paraesophageal hiatal hernia This a 68-year-old female who presents today for EGD. Patient underwent recent upper GI. Patient has a large paraesophageal hiatal hernia with intrathoracic stomach. Patient had issues with dysphagia gerd. Past Medical History Past Medical History: GERD/Reflux, Hyperlipidemia, Hypertension Additional Past Medical History / Comment(s): cardiomyopathy, kidney stones. Ocassional acid reflux. Hietal hernia History of Any Multi-Drug Resistant Organisms: None Reported Past Surgical History: Hysterectomy Additional Past Surgical History / Comment(s): colonoscopy Past Anesthesia/Blood Transfusion Reactions: No Reported Reaction Smoking Status: Former smoker - Past Family History Father Family Medical History: AFIB Mother Family Medical History: AFIB Sister(s) Family Medical History: AFIB Additional Family Medical History / Comment(s): pacemaker Medications and Allergies Home Medications Medication Instructions Recorded Confirmed Type Aspirin EC [Ecotrin Low Dose] 81 mg PO QAM 01/30/21 07/18/24 History Losartan Potassium 100 mg PO QAM 01/30/21 07/18/24 History Simvastatin [Zocor] 40 mg PO HS 01/30/21 07/18/24 History Vits A,C,E/Lutein/Minerals 1 tab PO HS 01/30/21 07/18/24 History [Ocuvite with Lutein Tablet] carvediloL [Coreg] 3.125 mg PO BID 01/30/21 07/18/24 History Otc Calcium /Vitamin D 1 tab PO DAILY 08/26/23 07/18/24 History Ferrous Sulfate [Iron] 325 mg PO QAM 07/18/24 07/18/24 History Fexofenadine HCl [Alissa Allergy] 180 mg PO QAM PRN 07/18/24 07/18/24 History Allergies Allergy/AdvReac Type Severity Reaction Status Date / Time penicillin G Allergy Unknown redness Verified 07/19/24 08:46 and itching omeprazole [From Prilosec] Allergy Rash/Hives Verified 07/19/24 08:46 Surgical - Exam Vital Signs Temp Pulse Resp BP Pulse Ox 97.2 F L 60 16 164/86 97 07/19/24 08:49 07/19/24 08:49 07/19/24 08:49 07/19/24 08:49 07/19/24 08:49 - General well developed, well nourished, no distress - Eyes PERRL - ENT normal pinna - Neck no masses - Respiratory normal expansion - Cardiovascular Rhythm: regular - Abdomen Abdomen: soft, non tender Assessment and Plan Assessment: Dysp dysphagia, gerd, paraesophageal hernia. Patient undergo EGD.
--- NOTE | 2024-07-19 11:08 | P.OP ---
Date of Procedure: 07/19/24 Preoperative Diagnosis: Paraesophageal hiatal hernia Esophagitis Postoperative Diagnosis: Paraesophageal hernia Esophagitis Intrathoracic stomach approxione third of the stomach and chest Procedure(s) Performed: EGD Anesthesia: MAC Surgeon: Michelet Goff Pathology: other (Esophagus) Condition: stable Disposition: PACU Description of Procedure: The patient was placed on the endoscopy table in the lateral position. She received IV sedation. The Gastroflux oropharynx passed in the esophagus and st omach. Scope was then placed through the pylorus. The 1st and 2nd portion of the duodenum appeared normal. Scope was brought back in the stomach. The scope was then retroflexed in the hiatal hernia was visualized. The scope was then brought back the patient apparently had approximately a third of the stomach in the chest. The GE junction was at 36 cm. The GE junction was biopsied. This appeared to be inflamed. The proximal esophagus appeared normal. Scope withdrawn the patient.
[2024-07-19 11:16] VITALS: RESP 18
[2024-07-19 11:35] VITALS: BP 127/63; PULSE 63
== END 2024-07-19 11:58 | disposition home or self-care (01) ==
LOC: ORWHC2ENDO 07:47
PROVIDERS: ATTEND Surgery
DX: K21.00 Gastro-esophageal reflux disease with esophagitis, without bleeding (principal); K44.9 Diaphragmatic hernia without obstruction or gangrene; I10 Essential (primary) hypertension; I42.9 Cardiomyopathy, unspecified; E78.5 Hyperlipidemia, unspecified; Z79.82 Long term (current) use of aspirin; Z79.899 Other long term (current) drug therapy; Z87.891 Personal history of nicotine dependence; Z88.0 Allergy status to penicillin; Z88.8 Allergy status to other drugs, medicaments and biological substances
CPT/HCPCS: 88305; 43239; J2704

== ENCOUNTER → 2024-07-20 | Outpatient (CLI) | payer MEDICARE ==
--- NOTE | 2024-07-20 14:45 | MM ---
Reason for Exam: Screening (asymptomatic). Last mammogram was performed 1 year(s) and 1 month(s) ago. Patient History: Menarche at age 13. Patient has no children. Left ovary removed at age 29. Right ovary removed at age 29. Hysterectomy at age 29. Postmenopausal. Estrogen for 13 years from age 29 until age 41. Risk Values: Hilary 5 year model risk: 1.9%. NCI Lifetime model risk: 6.4%. Prior Study Comparison: 07/08/2021 Bilateral Screening Mammogram, [facility]. 07/13/2022 Bilateral MG 3D screening mammo w/cad, [facility]. 07/19/2023 Bilateral MG 3D screening mammo w/cad, [facility]. Tissue Density: The breasts are heterogeneously dense, which may obscure small masses. Findings: Analyzed By CAD. There are several benign-appearing tiny round calcifications bilaterally redemonstrated. There is no suspicious group of microcalcifications or new suspicious mass in either breast. Overall Assessment: Benign, BI-RAD 2 Management: Screening Mammogram of both breasts in 1 year. . Patient should continue monthly self-breast exams. A clinical breast exam by your physician is recommended on an annual basis. This exam should not preclude additional follow-up of suspicious palpable abnormalities. Note on Hilary scores and lifetime risk: 1. A Hilary score greater than 3% is considered moderate risk. If this is the case, consider specialist referral to assess eligibility for a risk reducing agent. 2. If overall lifetime risk for the development of breast cancer is 20% or higher, the patient may qualify for future screening with alternating mammogram and breast MRI. [facility], , 07/20/2024 2:42 PM. Electronically signed and approved by: Shamir Palomo M.D.
== END | disposition home or self-care (01) ==
LOC: RADMAMWWP 13:35
PROVIDERS: ATTEND Internal Medicine
DX: Z12.31 Encounter for screening mammogram for malignant neoplasm of breast (principal); R92.333 Mammographic heterogeneous density, bilateral breasts; Z78.0 Asymptomatic menopausal state
CPT/HCPCS: 77063; 77067

== ENCOUNTER 2024-08-08 07:53 | Day surgery (SDC) | payer MEDICARE ==
[2024-08-08] MEDS: IV FLUID CONTINUATION 1,000 ML IV ONE ×2 (08:52→11:11)
[2024-08-08] MEDS: ACETAMINOPHEN TAB 500 MG TAB PO PRN (09:23)
[2024-08-08] MEDS: HEPARIN SODIUM,PORCINE 5,000 UNIT/ML 1 ML VIAL SQ PRN (09:23)
[2024-08-08] MEDS: DEXAMETHASONE SOD PHOSPHATE 4 MG/ML 1 ML VIAL IV ONE (09:23)
[2024-08-08] MEDS: ONDANSETRON 4 MG/2 ML VIAL IVP ONE (09:23)
[2024-08-08 09:29] LABS: Basophils # (A) 0.02 10*3/uL (0.00-0.10); Basophils % (A) 0.5 %; Eosinophils # (A) 0.09 10*3/uL (0.04-0.35); Eosinophils % (A) 2.1 %; HCT 45.5 % (37.2-46.3); HGB 14.7 g/dL (12.0-15.0); Lymphocytes # (A) 1.62 10*3/uL (0.90-5.00); MCH 30.8 pg (27.0-32.0); MCHC 32.3 g/dL (32.0-37.0); MCV 95.4 fL (80.0-97.0); Monocytes # (A) 0.39 10*3/uL (0.20-1.00); Monocytes % (A) 9.2 %; Neutrophils # (A) 2.13 10*3/uL (1.80-7.70); Platelet Count 184 10*3/uL (140-440); RBC 4.77 10*6/uL (4.10-5.20); RDW 13.5 % (11.5-14.5); WBC 4.26 10*3/uL (4.50-10.00)
[2024-08-08 09:43] LABS: ALT 17 U/L (4-34); AST 23 U/L (14-36); African American GFR (CKD) >90 (>60 ml/min/1.73 sqM); Albumin 4.5 g/dL (3.5-5.0); Alkaline Phosphatase 78 U/L (38-126); Anion Gap 10 mmol/L; Blood Urea Nitrogen 21 mg/dL (7-17); Calcium 9.7 mg/dL (8.4-10.2); Carbon Dioxide 28 mmol/L (22-30); Chloride 102 mmol/L (98-107); Glucose 91 mg/dL (74-99); Non-African American GFR(CKD) 89 (>60 ml/min/1.73 sqM); Potassium 4.4 mmol/L (3.5-5.1); Sodium 140 mmol/L (137-145); Total Bilirubin 0.8 mg/dL (0.2-1.3); Total Protein 7.6 g/dL (6.3-8.2)
[2024-08-08] MEDS ORDERED: GLYCOPYRROLATE 0.2 MG/ML 2 ML VIAL ONE (09:49)
[2024-08-08] MEDS ORDERED: NEOSTIGMINE 1 MG/ML 10 ML VIAL ONE (09:49)
[2024-08-08] MEDS ORDERED: SUGAMMADEX SODIUM 100 MG/ML SYR IV ONE (09:49)
[2024-08-08] MEDS ORDERED: ROCURONIUM 10 MG/ML (5 ML VIAL) IV ONE (09:49)
[2024-08-08] MEDS ORDERED: ePHEDrine 50 MG/ML 1 ML VIAL ONE (09:49)
[2024-08-08] MEDS ORDERED: LIDOCAINE 1% INJ 10MG/ML (20 ML MDV) ONE (09:49)
[2024-08-08] MEDS ORDERED: KETOROLAC 15 MG/ML 1 ML VIAL ONE (09:49)
[2024-08-08] MEDS ORDERED: SUCCINYLCHOLINE CHLORIDE 200 MG/10 ML VIAL IV ONE (09:49)
[2024-08-08] MEDS ORDERED: KETAMINE HCL IN 0.9 % NACL 50 MG/5 ML SYRINGE ONE (09:49)
[2024-08-08] MEDS ORDERED: MIDAZOLAM 2 MG/2 ML VIAL ONE (09:49)
[2024-08-08] MEDS ORDERED: PROPOFOL 10 MG/ML 20 ML VIAL IV ONE (09:49)
[2024-08-08] MEDS ORDERED: fentaNYL (PF) 50 MCG/ML 2 ML AMP ONE (09:49)
[2024-08-08] MEDS: ceFAZolin 2 GM in DEXTROSE 5% IN WATER 50 ML IVPB PRN (09:54)
[2024-08-08] MEDS: LIDOCAINE 1%-EPI 1:100,000 20 ML VIAL SQ ONE (10:26)
--- NOTE | 2024-08-08 11:00 | P.OP ---
Date of Procedure: 08/08/24 Preoperative Diagnosis: Paraesophageal hiatal hernia with intrathoracic stomach Postoperative Diagnosis: Paraesophageal hiatal hernia with intrathoracic stomach Procedure(s) Performed: Laparoscopic repair of paraesophageal hiatal hernia Anesthesia: EBONY Surgeon: Michelet Goff Estimated Blood Loss (ml): 5 Pathology: none sent Condition: stable Disposition: PACU Description of Procedure: The patient was placed on the operating table in the supine position. The patient received general anesthesia. And was placed in dorsal lithotomy position. The patient was prepped and draped in the usual sterile fashion. The skin incision sites were anesthetized with 1% local Xylocaine. The skin was incised in the left periumbilical area and then using a blade less 5 mm trocar under direct visualization panel cavity was entered. After adequate insufflation the laparoscope was then placed into the peritoneal cavity. Next a 5 mm trochars placed in the right epigastric position. Another 5 millimeter trocar the right lateral position. Another 5 millimeter trocar in the left la teral position a 5 mm trocar is placed in the left epigastric position. And then the initial 5 mm trocar was exchanged for a 10 mm trocar. A four-quadrant transversus abdominis plane block was performed 1% local Xylocaine. The left lateral lobe liver was retracted. The hernia was seen. Patient had a large hiatal hernia. Approximately 40% of the stomach was in the chest. The stomach was reduced. The crural defect was then dissected using the Harmonic scissors device. A 360 crural dissection was performed the esophagus stomach was reduced back into the peritoneal Cavity. The crural defect was then closed using 2-0 Ethibond suture. There was no injury seen to the stomach or esophagus. The dilator was then withdrawn. The abdomen was irrigated there is no bleeding seen. The trochars were then withdrawn and then skin incision sites were closed using 3-0 Monocryl suture Steri-Strips are applied. Patient thought procedure well and sent to recovery room in stable condition.
[2024-08-08] MEDS: HYDROmorphone 0.5 MG/0.5 ML SYRINGE IVP PRN (11:53)
[2024-08-08] MEDS: LACTATED RINGERS 1,000 ML IV SCH (14:39)
[2024-08-08] MEDS: D5-0.45% NACL WITH KCL 20MEQ/L 1,000 ML IV SCH (15:17)
[2024-08-08] MEDS: ONDANSETRON 4 MG/2 ML VIAL IVP PRN (20:28)
[2024-08-08] MEDS: HYDROmorphone 1 MG/ML 1 ML SYRINGE IVP PRN (20:29)
[2024-08-09 02:18] VITALS: PULSE 67
[2024-08-09] MEDS: ENOXAPARIN 40 MG/0.4 ML SYRINGE SQ SCH (08:03)
[2024-08-09] MEDS ORDERED: HYDROcodone/APAP 5-325MG 1 EACH TAB PO PRN (08:10)
[2024-08-09 08:12] VITALS: BP 133/81; RESP 19; TEMP 98.4
[2024-08-09 12:28] VITALS: BMI 30.5
--- NOTE | 2024-08-09 12:42 | P.DS ---
Providers Expected date of discharge: 08/09/24 Attending physician: Michelet Goff Primary care physician: Anahy Dasilva [facility] Course: Discharge diagnosis 1. Paraesophageal hiatal hernia with intrathoracic stomach Hospital course This is a 68-year-old female with a known paraesophageal hiatal hernia with intrathoracic stomach. She is status post laparoscopic repair of paraesophageal hiatal hernia. She is tolerating liquid diet. Pain is controlled. She has been up and ambulating. She denies any difficulty urinating. She is having flatus. She is afebrile. She is stable for discharge. Please refer to chart for further details. Physician Client Application Support Specialist note has been reviewed by physician. Signing provider agrees with the documented findings, assessment, and plan of care. Patient Condition at Discharge: Stable Plan - Discharge Summary Discharge Rx Participant: No New Discharge Prescriptions: New Acetaminophen Tab [Tylenol] 1,000 mg PO Q6HR PRN #30 tablet PRN Reason: Pain Continue Simvastatin [Zocor] 40 mg PO HS Losartan Potassium 100 mg PO QAM Aspirin EC [Ecotrin Low Dose] 81 mg PO HS Otc Calcium /Vitamin D 1 tab PO DAILY Ferrous Sulfate [Iron] 325 mg PO W/LUNCH carvediloL [Coreg] 3.125 mg PO BID Vits A,C,E/Lutein/Minerals [Ocuvite with Lutein Tablet] 1 tab PO HS Fexofenadine HCl [Alissa Allergy] 180 mg PO QAM PRN PRN Reason: allergic rhinitis Discharge Medication List Aspirin EC [Ecotrin Low Dose] 81 mg PO HS 01/30/21 [History] Losartan Potassium 100 mg PO QAM 01/30/21 [History] Simvastatin [Zocor] 40 mg PO HS 01/30/21 [History] Vits A,C,E/Lutein/Minerals [Ocuvite with Lutein Tablet] 1 tab PO HS 01/30/21 [History] carvediloL [Coreg] 3.125 mg PO BID 01/30/21 [History] Otc Calcium /Vitamin D 1 tab PO DAILY 08/26/23 [History] Ferrous Sulfate [Iron] 325 mg PO W/LUNCH 07/18/24 [History] Fexofenadine HCl [Alissa Allergy] 180 mg PO QAM PRN 07/18/24 [History] Acetaminophen Tab [Tylenol] 1,000 mg PO Q6HR PRN #30 tablet 08/09/24 [Rx] Follow up Appointment(s)/Referral(s): Michelet Goff MD [STAFF PHYSICIAN] - 1 Week Activity/Diet/Wound Care/Special Instructions: No lifting over 10 pounds Shower daily. No soaking or tub baths for 2 weeks Very light activity until you are reevaluated at your follow up appointment with your surgeon No straws or carbonated beverages Continue a full liquid diet x 2 weeks Discharge Disposition: HOME SELF-CARE
== END 2024-08-09 13:45 | disposition home or self-care (01) ==
LOC: OR 07:53 → 4SSUR 13:26 → OR 08-09 13:45
PROVIDERS: ATTEND Surgery
DX: K44.9 Diaphragmatic hernia without obstruction or gangrene (principal); Z79.899 Other long term (current) drug therapy
CPT/HCPCS: 80053; 85025; 43281; J1644; J1100; J0690; J2405; J1650; J1171 ×2